=== PATIENT | female | born 1935 | race Caucasian/White ===

== ENCOUNTER 2019-03-16 10:42 | Emergency (ER) | payer MEDICARE, SELFPAY ==
[2019-03-16 11:13] VITALS: BP 188/91; PULSE 68; RESP 18; TEMP 36.4; O2SAT 96; BMI 23.6
--- NOTE | 2019-03-16 11:59 | ED_ITS ---
Entered by Ollie Lantigua, acting as scribe for Bruce Rick DO Mar 16, 2019 10:42 HPI - Abdominal Pain General: Chief Complaint: Abdominal Pain Stated Complaint: Left side pain Time Seen by Provider: 03/16/19 12:03 History of Present Illness: HPI narrative: 84 yo female presents with left sided abdomen pain. Pt states that she has been constipated for awhile. pt states that she is nauseated but denies vomiting. Pt states that she has had b urning with urination. MD elicited complaint: abdominal pain Associated Symptoms: Reports constipation, dysuria and nausea; Denies chills, coffee ground emesis, GI cramping, diarrhea, fever(s), heartburn, hematochezia, hematuria, hematemesis, melena, syncope and vomiting Review of Systems Const: Denies: fever, chills, body aches, fatigue, malaise or night sweats Eyes: Denies: change in vision or blurry vision ENMT: Denies: throat pain, oral sores/lesions, dental pain, nasal discharge or nasal congestion Card: Denies: chest pain, palpitations, irregular heart rhythm, edema, syncope, shortness of breath on exertion, shortness of breath when lying down or leg pain with exertion Resp: Denies: shortness of breath, productive cough, non-productive cough or wheezing GI: Reports: abdominal pain, nausea and constipation; Denies: vomiting, vomiting blood, coffee grounds in vomit, difficulty swallowing, heartburn/indigestion, diarrhea, cramping, blood in stool or black tarry stool : Reports: painful urination and urinary frequency; Denies: flank pain, urinary urgency, urinary incontinence or blood in urine Musc: Denies: neck pain, back pain, extremity pain, extremity swelling, joint pain or joint swelling Skin/Breast: Denies: rash, itching or redness Neuro: Denies: headache, numbness in extremities, weakness in extremities, changes in sensation, lack of coordination, difficulty walking, frequent falls, dizziness, vertigo or confusion Psych: Denies: anxiety, depression, loss of interest, visual hallucinations, auditory hallucinations, suicidal ideation or homicidal ideation Endo: Denies: excessive urination, excessive thirst, tired all the time or cold intolerance Marcel/Lymph: Denies: easy bruising, easy bleeding, petechiae, enlarged lymph nodes or tender lymph nodes PFSH ED PFSH: Statuses (acute, chronic, etc) shown below reflect problem list status as previously entered and may not be historically accurate Medical History CVA (cerebral vascular accident) (Acute) Surgical History H/O mastectomy (Acute) History of cholecystectomy (Acute) History of hysterectomy (Acute) Social History Smoking and tobacco status: never smoked Physical Exam Const: COMMON NORMALS: average body habitus, oriented x3 and alert GENERAL APPEARANCE: cooperative, comfortable, well kempt and well developed NUTRITIONAL APPEARANCE: not obese ORIENTATION/CONSCIOUSNESS: Yes awake, Yes oriented to person and Yes oriented to place HENMT: COMMON NORMALS: normocephalic, head/scalp atraumatic, EAC's normal, TM's normal bilaterally, external nose normal, moist oral mucous membranes and oropharynx normal HEAD & SCALP: normocephalic and atraumatic NOSE: external nose normal EXTERNAL AUDITORY CANAL: EAC's normal TYMPANIC MEMBRANE: TM's normal bilaterally MOUTH: oral and palatal mucosa normal, lip normal and tongue normal THROAT: posterior oropharynx normal and tonsils normal Eye: COMMON NORMALS: PERRL, EOMs intact bilaterally, conjunctivae normal and no scleral icterus CONJUNCTIVA: Yes conjunctivae normal PUPIL: Yes PERRL Neck/C-Spine: COMMON NORMALS: full ROM, no lymphadenopathy, supple, no meningeal signs and thyroid normal THYROID: thyroid normal and asymmetrical Lymph: LYMPHATIC: no lymphadenopathy noted Resp: COMMON NORMALS: normal respiratory effort, no retractions, no use of accessory muscles and clear to auscultation bilaterally AUSCULTATION: clear to auscultation bilaterally Cardio: COMMON NORMALS: regular rate and regular rhythm RATE: regular rate RHYTHM: regular rhythm HEART SOUNDS: no murmurs GI: COMMON NORMALS: normal to inspection, nondistended, normoactive bowel sounds and soft to palpation PALPATION: Yes soft and Yes tender Details: LLQ : COMMON NORMALS: Yes no CVA tenderness BLADDER/KIDNEY EXAM: Yes no CVA tenderness Back/Pelvis: COMMON NORMALS: no CVA tenderness LUMBAR SPINE/LOWER BACK: Yes normal to inspection Extremity: COMMON NORMALS: no clubbing, cyanosis or edema, no calf tenderness and no pedal edema Neuro: COMMON NORMALS: oriented x3 SENSORIUM/ORIENTATION: Yes alert, Yes oriented to person and Yes oriented to place MENINGEAL SIGNS: Yes no meningeal signs Psych: APPEARANCE: Yes well kempt Skin: COMMON NORMALS: no rashes or lesions noted and skin turgor normal GENERAL SKIN EXAM: no rashes or lesions noted and turgor normal Course ED course: Patient is feeling better about discharge her home have her use mag citrate for constipation Vital Signs: Vital signs: Vital Signs Temperature 97.6 F 03/16/19 11:13 Pulse Rate 65 03/16/19 15:36 Respiratory Rate 16 03/16/19 15:36 Blood Pressure 134/63 03/16/19 15:36 Pulse Oximetry 99 03/16/19 15:36 MDM - Abdominal Pain Lab Data: Labs: Lab Results 03/16/19 03/16/19 03/16/19 Range/Units 12:30 12:30 14:10 WBC 6.4 (4.0-10.0) 10^3/ uL RBC 4.53 (4.1-5.3) 10^6/u L Hgb 14.5 (11.5-15.3) g/dL Hct 43.3 (37.0-47.0) % MCV 95.6 (81-99) fL MCH 32.0 (28.0-34.0) pg MCHC 33.5 (30.0-36.0) g/dL RDW 12.6 (12.1-15.1) % Plt Count 254 (130-400) 10^3/c mm MPV 9.8 (7.4-10.4) fL Neut % (Auto) 64.3 % Lymph % (Auto) 23.8 % [place] % (Auto) 7.9 % Eos % (Auto) 3.1 % Baso % (Auto) 0.6 % Neut # (Auto) 4.1 (1.8-7.7) 10^3/u L Lymph # (Auto) 1.5 (0.8-4.8) 10^3/u L [place] # (Auto) 0.5 (0.2-0.9) 10^3/u L Eos # (Auto) 0.2 (0.0-0.8) 10^3/u L Baso # (Auto) 0.0 (0.0-0.1) 10^3/u L Nucleated RBC % (a uto) 0 % Nucleated RBCs # 0.0 /100WBC Sodium 136 (136-145) mmol/L Potassium 4.5 (3.5-5.1) mmol/L Chloride 100 (98-107) mmol/L Carbon Dioxide 26 (22-29) mmol/L Anion Gap 14.5 (5-19) BUN 15 (8-23) mg/dL Creatinine 1.0 H (0.5-0.9) mg/dL Glucose 113 (65-115) mg/dL Calcium 10.0 (8.5-10.5) mg/dL Total Bilirubin 0.6 (0.15-1.2) mg/dL AST 22 (0-32) U/L ALT 10 (0-33) U/L Alkaline Phosphata se 52 (35-105) IU/L Total Protein 7.4 (6.6-8.7) g/dL Albumin 4.2 (3.5-5.2) g/dL Globulin 3.2 (1.3-4.6) g/dL Lipase 18 (13-60) U/L Urine Color Yellow (Yellow) Urine Appearance Clear (CLEAR) Urine pH 5 (5-7) Ur Specific Gravit y 1.015 (1.005-1.030) Urine Protein Neg (Negative) Urine Glucose (UA) Norm (Normal) Urine Ketones Negative (Negative) Urine Occult Blood Neg (Negative) Urine Nitrate Negative (Negative) Urine Bilirubin Neg (NEGATIVE) Urine Urobilinogen Norm (Negative) mg/dL Ur Leukocyte Jessica ase Negative (Negative) Discharge Plan Discharge Patient Disposition: Home, Self-Care Clinical Impression: Constipation, Osteoarthritis of right hip Condition: Stable Prescriptions: No Action citalopram 40 mg tablet 20 mg PO ONCE MDD 1 Qty: 30 RF: 5 Referrals: Galileo Yan MD [Primary Care Provider] - Discharge Diet: Usual diet Discharge Activity: Resume usual activity Discharge Date/Time: 03/16/19 15:37 Coding Level of Care Code ED Pharmacy General Manager for Chg Fwd Exam Problem Focused The documentation recorded by the Grzegorz liu,Kialy, accurately reflects the service I personally performed and the decisions made by , Bruce Rick, Mar 16, 2019 10:42
--- NOTE | 2019-03-16 12:10 | XR_ITS ---
WS: [id number] Left hip, AP and frog leg views, 03/16/2019 Clinical Data: pain Comparison: None. Findings: No fractures or dislocations are seen. The hip joint is intact. The soft tissues are not remarkable. The adjacent pelvis is normal. XR/XR hip LT 2-3V wo/w pel* [id number] Impression: Negative left hip.
--- NOTE | 2019-03-16 12:24 | PC.NURSE ---
Pt presents to ER with LLQ abdominal pain that radiates into the left leg. Pt states that she has chronic constipation and feels the pain is related to this. Last BM was very small and hard yesterday; she cannot remember her last normal BM or her last BM before yesterday. Bowels sounds are normoactive in all four quadrants. Patient states she does have a hernia in the LLQ of the abdomen.
[2019-03-16 12:44] LABS: Basophils % 0.6 %; Eosinophils # 0.2 10^3/uL (0.0-0.8); Eosinophils % 3.1 %; Hematocrit 43.3 % (37.0-47.0); Hemoglobin 14.5 g/dL (11.5-15.3); Lymphocytes # 1.5 10^3/uL (0.8-4.8); Lymphocytes % 23.8 %; Mean Corpuscular HGB Conc 33.5 g/dL (30.0-36.0); Mean Corpuscular Volume 95.6 fL (81-99); Mean Platelet Volume 9.8 fL (7.4-10.4); Monocytes # 0.5 10^3/uL (0.2-0.9); Monocytes % 7.9 %; Neutrophils # 4.1 10^3/uL (1.8-7.7); Neutrophils % 64.3 %; Nucleated Red Blood Cells % 0 %; Platelet Count 254 10^3/cmm (130-400); Red Blood Count 4.53 10^6/uL (4.1-5.3); Red Cell Distribution Width 12.6 % (12.1-15.1); White Blood Count 6.4 10^3/uL (4.0-10.0)
[2019-03-16 13:02] LABS: Alanine Aminotransferase 10 U/L (0-33); Albumin Level 4.2 g/dL (3.5-5.2); Alkaline Phosphatase 52 IU/L (35-105); Anion Gap 14.5 (5-19); Aspartate Amino Transferase 22 U/L (0-32); Blood Urea Nitrogen 15 mg/dL (8-23); Carbon Dioxide 26 mmol/L (22-29); Chloride 100 mmol/L (98-107); Globulin 3.2 g/dL (1.3-4.6); Glucose 113 mg/dL (65-115); Lipase 18 U/L (13-60); Potassium 4.5 mmol/L (3.5-5.1); Sodium 136 mmol/L (136-145); Total Bilirubin 0.6 mg/dL (0.15-1.2); Total Protein 7.4 g/dL (6.6-8.7)
[2019-03-16 13:19] VITALS: BP 148/82; PULSE 63; RESP 18; O2SAT 96
[2019-03-16 15:01] LABS: Add Urine Microscopic? NO
[2019-03-16 15:07] LABS: Bilirubin Urine Neg (NEGATIVE); Blood Urine Neg (Negative); Glucose Urine UA Norm (Normal); Ketones Urine Negative (Negative); Leukocyte Esterase Urine Negative (Negative); Nitrate Urine Negative (Negative); Protein Urine Neg (Negative); Specific Gravity, Urine 1.015 (1.005-1.030); Urine Appearance Clear (CLEAR); Urine Color Yellow (Yellow); Urobilinogen Urine Norm (Negative); pH Urine 5 (5-7)
[2019-03-16 15:36] VITALS: BP 134/63; PULSE 65; RESP 16; O2SAT 99
== END 2019-03-16 15:37 | disposition home or self-care (01) ==
PROVIDERS: Emergency Provider Family Medicine; Family Provider Internal Medicine; PCP Internal Medicine
DX: K59.00 Constipation, unspecified (principal); M16.11 Unilateral primary osteoarthritis, right hip; Z86.73 Personal history of transient ischemic attack (TIA), and cerebral infarction without residual deficits
CPT/HCPCS: 36415; 73502; 80053; 81003; 83690; 85025; 99282; 99283; A9270

== ENCOUNTER 2019-03-22 10:20 | Outpatient (CLI) | payer MEDICARE, SELFPAY ==
--- NOTE | 2019-03-22 10:35 | XRR_ITS ---
PROCEDURE INFORMATION: Exam: XR Lumbosacral Spine, 2 or 3 Views Exam date and time: 03/22/2019 10:53 AM Age: 84 years old Clinical indication: Other: Llq abd pain; Prior surgery; Surgery type: Hystero; Additional info: Llq abdominal pain TECHNIQUE: Imaging protocol: XR of the lumbosacral spine, 2 or 3 views. COMPARISON: CR Lumbar Spine 2-3 views* [id number] 03/02/2013 9:49 AM FINDINGS: Vertebrae: Severe diffuse degenerative disc disease reflected as severe decrease in disc space height and anterior endplate osteophytosis. No spondylolisthesis No pars defect. Osteopenia Mild compression fracture anterior column L1. Severe compression fractures T12 and T11. Exaggerated kyphosis at this interval. Soft tissues: Normal. XR/XR lumbar spine 2-3V* [id number] IMPRESSION: 1. Severe diffuse degenerative disc disease. 2. Mild compression fracture anterior column L1. Severe compression fractures T12 and T11. Exaggerated kyphosis at this interval.
== END 2019-03-22 10:21 | disposition home or self-care (01) ==
LOC: RAD 10:30
PROVIDERS: Family Provider Internal Medicine; PCP Family Medicine; Visit Provider Family Medicine
DX: R10.32 Left lower quadrant pain (principal); M51.36 Other intervertebral disc degeneration, lumbar region; M48.56XA Collapsed vertebra, not elsewhere classified, lumbar region, initial encounter for fracture; M48.54XA Collapsed vertebra, not elsewhere classified, thoracic region, initial encounter for fracture; X58.XXXA Exposure to other specified factors, initial encounter
CPT/HCPCS: 72100

== ENCOUNTER 2019-05-10 08:30 | Outpatient (CLI) | payer MEDICARE, SELFPAY ==
[2019-05-10 10:55] LABS: Basophils % 0.6 %; Eosinophils # 0.2 10^3/uL (0.0-0.8); Eosinophils % 2.4 %; Lymphocytes # 1.4 10^3/uL (0.8-4.8); Mean Corpuscular HGB Conc 32.6 g/dL (30.0-36.0); Mean Corpuscular Hemoglobin 31.5 pg (28.0-34.0); Mean Corpuscular Volume 96.6 fL (81-99); Mean Platelet Volume 10.6 fL (7.4-10.4); Monocytes # 0.5 10^3/uL (0.2-0.9); Monocytes % 6.8 %; Neutrophils # 4.6 10^3/uL (1.8-7.7); Neutrophils % 68.9 %; Nucleated Red Blood Cells % 0 %; Platelet Count 265 10^3/cmm (130-400); Red Blood Count 4.45 10^6/uL (4.1-5.3); White Blood Count 6.6 10^3/uL (4.0-10.0)
[2019-05-10 11:07] LABS: Alanine Aminotransferase 10 U/L (0-33); Albumin Level 4.2 g/dL (3.5-5.2); Alkaline Phosphatase 48 IU/L (35-105); Anion Gap 14.8 (5-19); Aspartate Amino Transferase 22 U/L (0-32); Blood Urea Nitrogen 14 mg/dL (8-23); Calcium 9.9 mg/dL (8.5-10.5); Carbon Dioxide 25 mmol/L (22-29); Chloride 102 mmol/L (98-107); Globulin 3.1 g/dL (1.3-4.6); Glucose 120 mg/dL (65-115); Lactate Dehydrogenase 223 U/L (135-214); Osmolality Calculated 283 mOsm/kg (285-295); Potassium 3.8 mmol/L (3.5-5.1); Sodium 138 mmol/L (136-145); Total Bilirubin 0.5 mg/dL (0.15-1.2); Total Protein 7.3 g/dL (6.6-8.7)
== END 2019-05-10 08:31 | disposition home or self-care (01) ==
LOC: ONCMED 15:06
PROVIDERS: Family Provider Internal Medicine; PCP Family Medicine; Visit Provider Internal Medicine Medical Oncology
DX: C82.10 Follicular lymphoma grade II, unspecified site (principal)
CPT/HCPCS: 36415; 80053; 83615; 85025

== ENCOUNTER 2019-05-16 13:34 | Outpatient (CLI) | payer MEDICARE, SELFPAY ==
[2019-05-16] MEDS: denosumab 60 mg SDV SUBCUT (14:45)
--- NOTE | 2019-05-16 18:38 | ONC FU_ITS ---
Dr. Llanos Patient Follow-Up Note Patient: Stacie Hernandez Unit #: [id number]: [id number] Dicatated By: Dago Llanos M.D.Date of Visit:May 16, 2019 Onc Med Follow-up/Prog Note Chief Complaint: Lymphoma. 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 On 02/08/2013 she was admitted with acute on chronic lower back pain and intractable nausea and vomiting. Her CT and follow up MRI revealed a right paraspinal mass measuring 6.2 cm with associated cord compression at T12 and with involvement of the spinal canal at L1. There was destruction of T12 and L1 vertebral bodies. The extraspinal component of the neoplasm displaced the abdominal aorta. CT-guided core needle biopsy on 02/09/2013 showed grade 1-2/3 follicular lymphoma with follicular and diffuse pattern of growth. Immunohistochemistry was positive for CD10, CD20, BCL 2, and negative for cyclin D1. Ki-67 was less than 5%. She was first seen on by Dr. Terrazas on 02/12/2013. LDH was 244, ESR 29. FLIPI score with low risk, with adverse factor being her age only. Her staging PET/CT on 02/16/2013 showed 6 cm retrocrural mass tracking into spinal canal at T12 with SUV of 5.5. There was a pathological fracture of L1 and partial compression fracture of T12. No other sites of malignancy were identified. A bone marrow biopsy on 02/22/2013 showed no evidence of metastatic disease. She completed definitive radiation therapy to 4000 cGy on 03/08/2013. Lumbar spine MRI on 03/28/2013 showed decrease in epidural soft tissue neoplasm. There was a new right and left lateral T11 bone involvement, concerning for progression of disease. LDH was 183. The followup CT of abdomen and pelvis on 04/20/2013 showed stable paraspinal mass, but increase in the compression fracture at T12. PET/CT on 06/16/2013 showed 4.7 cm paraspinous mass with negligible FDG uptake. There was a complete compression fracture of T12, partial compression fracture of L1. Some increased FDG uptake in T11 was thought to represent postradiation reaction. There were no new sites of lymphoma identified. A CT of the abdomen and pelvis on 12/07/2013 was without evidence of progression. The paraspinal mass was smaller. DEXA scan revealed significant osteoporosis. She began on therapy with Prolia. Bone scan as well as CT scans of the chest, abdomen, and pelvis on 10/01/2014 had no evidence of disease recurrence. There were T and L-spine compression fractures. She continued observation/expectant management. Her medical history is otherwise significant for right hemispheric stroke in 2011. She has hyperlipidemia, hypothyroidism, B12 deficiency, and anxiety/depression. She is a nonsmoker. INTERIM HISTORY: I had seen her for a follow-up visit in March 2016. At that time she was having back pain and she had somewhat limited activity, but there was no evidence clinically of disease progression. She continued observation/expectant management. Surveillance CT scans on 10/19/2016 showed no adenopathy and no evidence of disease progression in the chest, abdomen, or pelvis. In May 2017 she restarted Prolia for the osteoporosis. Her repeat DEXA scan on 05/25/2018 showed T score -3.2 in the lumbar spine, -2.3 in the left proximal femur, and -3.0 in the right proximal femur. She is seen for a scheduled visit. She has not been feeling as good generally. She indicates that in early March she had fairly abrupt onset of pain across her shoulders, and the next day she woke up with pain in her left leg. The pain has been severe enough to limit her activity, and she is now having to use a walker to ambulate. She has assumed this was due to another stroke, because she also has been mad and irritable with her family. She has been crying a lot. She says her energy is terrible. She is mostly sedentary. Her ECOG score is 3. Her appetite has been down a little, but her weight is stable. She as not had fever. She had some sweating last night. She complains that her eyes hurt and burn. She sometimes has a hard time breathing. She does not have cough and she does not complain of chest pain. She occasionally has nausea. Bowel function has been better. She has no complaints. She has no other joint or bone pain. She has been having more headaches, mainly on the right side. Her hands sometimes go to sleep. She has no other focal neurologic symptoms. Medications: Aspirin 1 (81 mg) Tablet Oral daily, Atenolol-Chlorthalidone 1 (100-25 mg) Tablet Oral daily, busPIRone HCl 1 Tablet (of 5 mg) Oral t.i.d. PRN, CeleXA 1 (20 mg) Tablet Oral daily, Hydrocodone-Acetaminophen (5-325 mg) Tablet Oral Take as Directed, Lisinopril 1 (40 mg) Tablet Oral daily, Multivital 1 Tablet Oral daily, Simvastatin 1 (20 mg) Tablet Oral daily, Synthroid 1 (150 mcg) Tablet Oral daily, Xanax 1 Tablet (of 0.25 mg) Oral PRN Allergies: Niacin Review of Systems: Constitutional - Her energy level is low to non-exsistant. She is mainly sedentary at home. Her appetite is poor but weight is stable. No fever, chills, hot flashes. She had an episode of sweating at night a few nights ago. ECOG score is 3, Eyes - She is having a frequent burning sensation in her eyes, ENMT - She has sinus congestion/drainage. No mouth sores. No sore throat or difficulty swallowing, Hematologic/Lymphatic - No abnormal bruising or bleeding, Respiratory - She sometimes has a hard time breathing. No cough. No pleuritic pain or hemoptysis, Cardiovascular - No angina pain. No palpitations, Gastrointestinal - She occasionally has nausea. No heartburn or acid reflux. No diarrhea or constipation. No blood in the stool or black stools, Genitourinary (F) - No dysuria or hematuria. No urinary frequency. No urgency or incontinence, Musculoskeletal - She is having significant pain down her left leg, she is now having to use a walker to ambulate, Integumentary - No skin complications, Neurologic - She is having right sided headaches. No dizziness. Her hands occasionally go to sleep. She has no other focal neurologic symptoms, Psychiatric - She is having significant anxiety and depression. She states that she has been crying almost daily. She has noticed changes in her mood, as she has been more irritable with her family. She has insomnia. Vital Signs: Performed on May 16, 2019 13:47 Height - 60.00 in Weight - 108.6 lbs (LOW) BSA - 1.44 sq.m BMI - 21.21 Temperature - 98.1 F (LOW) Pulse - 66 /min Respiration - 18 /min BP - 133/71 mm(hg) O2 Sat - 97 % Pain - 0 Physical Examination: Constitutional - She does not appear acutely ill, Eyes - Sclerae nonicteric. Conjunctivae clear, ENMT - There are no lesions noted in the oral cavity, Hematologic/Lymphatic - No cervical, clavicular, or axillary adenopathy, Respiratory - Lungs are clear with good air movement bilaterally, Cardiovascular - Heart rhythm is regular. There is no gallop or rub noted, Abdomen - Soft. Liver and spleen are not enlarged. There is no abdominal mass or ascites noted and there is no inguinal adenopathy, Extremities - No edema. Dorsalis pedis pulses are palpable bilaterally. There is mild tenderness in the area of the left greater trochanter, Neurologic - There are no focal neurologic deficits. Lab/Imaging: Test performed on May 10, 2019 08:30 LDH (Total) 223 U/L Sodium 138 mmol/L Potassium 3.8 mmol/L Chloride 102 mmol/L CO2 25 mmol/L Anion Gap 14.8 BUN 14 mg/dL Creatinine 1.1 mg/dL Cr Clearance (Est) 31.2300 mL/min Glucose 120 mg/dL Calcium 9.9 mg/dL Protein, Total 7.3 g/dL Albumin 4.2 g/dL Globulin 3.1 g/dL Bilirubin, Total 0.5 mg/dL ALT (SGPT) 10 U/L AST (SGOT) 22 U/L Alkaline Phosphatase 48 IU/L WBC 6.6 10 3/uL RBC 4.45 10 6/uL HGB 14.0 g/dL HCT 43.0 % MCV 96.6 fL MCH 31.5 pg MCHC 32.6 g/dL RDW 13.0 % Platelet Count 265 10 3/cmm MPV 10.6 fL Neutrophils 4.6 10 3/uL Lymphocytes 1.4 10 3/uL Monocytes 0.5 10 3/uL Eosinophils 0.2 10 3/uL Basophils 0.0 10 3/uL Neutrophil % 68.9 % Lymphocyte % 21.0 % Monocyte % 6.8 % Eosinophil % 2.4 % Basophils % 0.6 % Impression: 1. 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 She had low risk FLIPI score. 2. She also had associated pathologic fractures of T12 and L1. 3. She underwent definitive radiation therapy to the involved area, completed on 03/08/2013 to a total dose of 4000 cGy. 4. MRI of the lumbar spine on 03/28/2013 showed possible progression of disease in T11, but PET/CT on 06/16/2013 was suggestive of radiation related reaction. She had severe pain with further compression of T12, and she was found to have significant osteoporosis. She had subsequently started on treatment with Prolia. For some reason it was stopped following her injection in March 2015. 5. She has remain on observation for the lymphoma following completion of the radiation in February 2013. Her other medical illnesses include: 6. Hypertension. 7. Hyperlipidemia. 8. Hypothyroidism. 9. Cerebrovascular disease with history of right hemispheric stroke in 2011. 10. Anxiety/depression. Thus far during followup there has been no obvious recurrence/progression of the lymphoma. She had evidence of significant osteoporosis, for which she has been on treatment with Prolia. She has been showing decline in performance status. For the past couple of months she has had persistent pain in the lateral aspect of her left leg. Plan: She will continue on observation/expectant management for the lymphoma. She will be given Prolia 60 mg by subcutaneous injection for the osteoporosis. She will be scheduled for a follow-up visit in 6 months. In the meantime, she will be given a prescription for meloxicam 7.5 mg daily for the left leg pain. Signed By: Dago Llanos M.D. <<Signature on File>>
== END 2019-05-16 13:35 | disposition home or self-care (01) ==
PROVIDERS: Family Provider Internal Medicine; PCP Family Medicine; Visit Provider Internal Medicine Medical Oncology
DX: M81.0 Age-related osteoporosis without current pathological fracture (principal); M79.605 Pain in left leg; Z85.72 Personal history of non-Hodgkin lymphomas; I10 Essential (primary) hypertension; I67.9 Cerebrovascular disease, unspecified; E78.5 Hyperlipidemia, unspecified; E03.9 Hypothyroidism, unspecified; F41.8 Other specified anxiety disorders; Z86.73 Personal history of transient ischemic attack (TIA), and cerebral infarction without residual deficits; Z87.311 Personal history of (healed) other pathological fracture
CPT/HCPCS: 96372; 99214; J0897

== ENCOUNTER 2019-05-28 01:42 | Outpatient (CLI) | payer MEDICARE, SELFPAY ==
--- NOTE | 2019-05-28 14:15 | XR_ITS ---
WS: [id number] PROCEDURE: XR chest 2V* [id number] CLINICAL INFORMATION: SHORTNESS OF BREATH COMPARISON: March 10, 2018 FINDINGS: Heart: Normal cardiac silhouette. Aortic calcification Lungs: Moderate chronic emphysematous changes. Elevation right hemidiaphragm is unchanged. No acute-a ppearing pulmonary infiltrates. Bones: Marked thoracic kyphosis with chronic appearing compression in the mid thoracic spine with jarocho tebral plana. Thoracic scoliosis. XR/XR chest 2V* [id number] IMPRESSION: 1. Moderate chronic emphysematous changes with elevation right hemidiaphragm. 2. No acute-appearing pulmonary infiltrates. 3. Marked thoracic kyphosis with chronic appearing anterior wedging compressio n of the mid thoracic spine.
[2019-05-28 14:20] LABS: Basophils % 0.4 %; Eosinophils # 0.2 10^3/uL (0.0-0.8); Eosinophils % 3.7 %; Hematocrit 41.3 % (37.0-47.0); Hemoglobin 13.4 g/dL (11.5-15.3); Lymphocytes # 1.1 10^3/uL (0.8-4.8); Lymphocytes % 22.2 %; Mean Corpuscular HGB Conc 32.4 g/dL (30.0-36.0); Mean Corpuscular Hemoglobin 31.5 pg (28.0-34.0); Mean Corpuscular Volume 97.2 fL (81-99); Mean Platelet Volume 10.3 fL (7.4-10.4); Monocytes # 0.4 10^3/uL (0.2-0.9); Monocytes % 8.2 %; Neutrophils # 3.2 10^3/uL (1.8-7.7); Neutrophils % 65.3 %; Nucleated Red Blood Cells % 0 %; Platelet Count 233 10^3/cmm (130-400); Red Blood Count 4.25 10^6/uL (4.1-5.3); Red Cell Distribution Width 13.1 % (12.1-15.1); White Blood Count 4.9 10^3/uL (4.0-10.0)
[2019-05-28 14:57] LABS: Alanine Aminotransferase 12 U/L (0-33); Albumin Level 4.2 g/dL (3.5-5.2); Alkaline Phosphatase 55 IU/L (35-105); Anion Gap 15.3 (5-19); Aspartate Amino Transferase 24 U/L (0-32); Blood Urea Nitrogen 11 mg/dL (8-23); Calcium 9.5 mg/dL (8.5-10.5); Carbon Dioxide 26 mmol/L (22-29); Chloride 103 mmol/L (98-107); Globulin 3.2 g/dL (1.3-4.6); Glucose 108 mg/dL (65-115); NT Pro B Type Natriuretic Pept 157 pg/mL (0-450); Osmolality Calculated 287 mOsm/kg (285-295); Potassium 4.3 mmol/L (3.5-5.1); Sodium 140 mmol/L (136-145); Total Bilirubin 0.3 mg/dL (0.15-1.2); Total Protein 7.4 g/dL (6.6-8.7)
== END 2019-05-28 01:43 | disposition home or self-care (01) ==
LOC: RAD 13:44
PROVIDERS: Family Provider Internal Medicine; PCP Family Medicine; Visit Provider Registered Nurse
DX: R06.02 Shortness of breath (principal); J43.9 Emphysema, unspecified; M40.204 Unspecified kyphosis, thoracic region
CPT/HCPCS: 71046; 80053; 83880; 85025

== ENCOUNTER 2019-07-12 11:35 | Outpatient (CLI) | payer MEDICARE, SELFPAY ==
--- NOTE | 2019-07-12 11:43 | CT_ITS ---
WS: [id number] CT CHEST WITH INTRAVENOUS CONTRAST HISTORY: SHORTNESS OF BREATH/PULMONARY EMPHYSEMA TECHNIQUE: Contiguous 5 mm axial imaging performed on the thorax. Coronal and sagittal reformats are submitted. All CT scans at [facility] use at least one of these dose optimization techniq ues: automated exposure control; mA and/or kV adjustment per patient size (includes targeted exams wh ere dose is matched to clinical indication); or iterative reconstruction. CONTRAST: Visipaque 320; 95 mL IV. DLP: 267.6 mGy.cm COMPARISON: 10/19/2016 Lungs and central airway: Mild emphysema. Mild pulmonary hyperexpansion. 2 mm nodule superior segment RIGHT lower lobe is stable. No suspicious mass. There is mild elevation of the RIGHT hemidiaphragm w ith partial atelectasis of the RIGHT middle and RIGHT lower lobes which is similar to the prior study . Interstitial thickening at the RIGHT lung base is stable. Pleura: Normal. No pleural effusion. Heart and pericardium: Normal size heart. No pericardial effusion. Mediastinum and juan ramon: No adenopathy. Vessels: Mild atherosclerosis aorta. No aneurysm. Normal size pulmonary artery. Heavy calcifications noted within the [place] coronary arteries. Chest wall and lower neck: No soft tissue masses. Upper abdomen: Mild elevation of the RIGHT hemidiaphragm with the liver high riding into the thorax. Prior cholecystectomy. Suprarenal atherosclerosis of aorta. There is no adrenal mass. 9 mm cyst upper pole RIGHT kidney. Osseous structures: Severe vertebral planar fractures at T11, T12 and L1. No change in the fracture s sawyer 10/19/2016. Mild anterior wedging of T7 is also stable. CT/CT chest w con* [id number] IMPRESSION: 1. Mild emphysema with stable elevation of the RIGHT hemidiaphragm. 2. Moderate atherosclerosis aorta and coronary arteries. 3. No pneumonia. 4. Long-term stability of micronodule RIGHT lower lobe. 5. Stable compression fractures at T7, T11, T12 and L1.
[2019-07-12] MEDS: iodixanol 320 mg/mL 100mL Btl IV (12:06)
== END 2019-07-12 11:36 | disposition home or self-care (01) ==
LOC: RADWPI 11:40 → RAD 11:40
PROVIDERS: PCP Family Medicine; Visit Provider Registered Nurse
DX: R06.02 Shortness of breath (principal); J43.8 Other emphysema; I70.0 Atherosclerosis of aorta; I25.10 Atherosclerotic heart disease of native coronary artery without angina pectoris; R91.1 Solitary pulmonary nodule; M48.54XA Collapsed vertebra, not elsewhere classified, thoracic region, initial encounter for fracture
CPT/HCPCS: 71260

== ENCOUNTER 2019-08-03 13:33 | Outpatient (CLI) | payer MEDICARE, SELFPAY ==
--- NOTE | 2019-08-03 13:43 | USCV_ITS ---
Stacie Hernandez Age: 84 Gender: F : 1935 Exam Date: 08/03/2019 14:00 Ordering Phys: Eleonora Mercado Technologist: Yahaira Latif [place] [facility] [place]: [place]CP BP: / HR: 62 Rhythm: Sinus Technical Quality: Suboptimal MEASUREMENTS (Male / Female) Normal Values 2D ECHO LV Diastolic Diameter PLAX 3.2 cm 4.2 - 5.9 / 3.9 - 5.3 cm LV Systolic Diameter PLAX 2.3 cm IVS Diastolic Thickness 0.9 cm 0.6 - 1.0 / 0.6 - 0.9 cm IVS Systolic Thickness 1.4 cm LVPW Diastolic Thickness 0.5 cm 0.6 - 1.0 / 0.6 - 0.9 cm LVPW Systolic Thickness 1.5 cm LVOT Diameter 2.0 cm LV Ejection Fraction 2D Teich 57.9 % LV Ejection Fraction MOD 2C 74.3 % LV Ejection Fraction 2C AL 74.6 % LA Diameter 3.6 cm LA Width 2.4 cm LA Height 5.0 cm RA Width 2.9 cm RA Height 2.5 cm M-MODE LV Diastolic Diameter MM 4.2 cm 4.2 - 5.9 / 3.9 - 5.3 cm LV Systolic Diameter MM 2.7 cm LV Ejection Fraction MM Teich 65.6 % IVS Diastolic Thickness MM 0.6 cm 0.6 - 1.0 / 0.6 - 0.9 cm IVS Systolic Thickness MM 1.0 cm LVPW Diastolic Thickness MM 0.7 cm 0.6 - 1.0 / 0.6 - 0.9 cm LVPW Systolic Thickness MM 1.2 cm Aortic Annulus Diameter 3.3 cm LA Ao Ratio MM 1.1 DOPPLER AV Peak Velocity 113.0 cm/s LVOT Peak Velocity 105.0 cm/s AV Area Cont Eq vti 2.9 cm squared AV Area Cont Eq pk 2.9 cm squared MV Peak Velocity 104.0 cm/s MV Area PHT 3.9 cm squared Mitral E to A Ratio 0.6 MV E' Velocity 5.0 cm/s Mitral E to MV E' Ratio 13.2 Mitral E to LV E' Lateral Ratio 12.7 Mitral E to LV E' Septal Ratio 14.0 TR Peak Velocity 236.0 cm/s TR Peak Gradient 22.4 mmHg Right Atrial Pressure 3.0 mmHg Pulmonary Artery Systolic Pressu 25.3 mmHg PV Peak Velocity 63.0 cm/s RV Acceleration Time 0.1 s FINDINGS Left Ventricle Normal left ventricular cavity size. Mild left ventricular hypertrophy. Normal left ventricular systolic function. No regional wall motion abnormalities. Grade I/IV diastolic dysfunction (abnormal relaxation filling pattern), normal to mildly elevated filling pressures. Left ventricular ejection fraction is estimated at 65 %. Right Ventricle Normal right ventricular size and systolic function. Normal right ventricular systolic pressure. Right Atrium The right atrium is normal in size. Left Atrium The left atrium is normal in size. Mitral Valve Structurally normal mitral valve. Trace mitral valve regurgitation. Aortic Valve Structurally normal trileaflet aortic valve. No aortic valve stenosis. Mild aortic valve regurgitation. Tricuspid Valve Structurally normal tricuspid valve. Trace tricuspid valve regurgitation. Pulmonic Valve Pulmonic valve not well visualized. Pericardium Normal pericardium without effusion. Aorta Normal ascending aorta dimension. CONCLUSIONS Normal left ventricular cavity size. Mild left ventricular hypertrophy. Normal left ventricular systolic function. No regional wall motion abnormalities. Grade I/IV diastolic dysfunction (abnormal relaxation filling pattern), normal to mildly elevated filling pressures. Left ventricular ejection fraction is estimated at 65 %. Structurally normal mitral valve. Trace mitral valve regurgitation. Structurally normal trileaflet aortic valve. No aortic valve stenosis. Mild aortic valve regurgitation. There are no prior echocardiogram studies to compare. Dr. Beny Dominguez MD (Electronically Signed) Final Date: 03 August 2019 15:13 S
== END 2019-08-03 13:34 | disposition home or self-care (01) ==
LOC: US 13:41
PROVIDERS: PCP Family Medicine; Visit Provider Registered Nurse
DX: R06.02 Shortness of breath (principal); R07.9 Chest pain, unspecified; I35.1 Nonrheumatic aortic (valve) insufficiency
CPT/HCPCS: 93306

== ENCOUNTER 2019-08-21 10:30 | Outpatient (CLI) | payer MEDICARE, SELFPAY ==
--- NOTE | 2019-08-21 10:35 | CT_ITS ---
WS: [id number] CT NECK TECHNIQUE: Contrast-enhanced CT of the neck with coronal and sagittal reformatted images. CLINICAL INFORMATION: DYSPHAGIA COMPARISON: CT neck 1 19,010 and PET/CT 5 10,014 DLP: 468.[address] scans at [facility] use at least one of these dose optimization techniques: automat ed exposure control; mA and/or kV adjustment per patient size (includes targeted exams where dose is matched to clinical indication); or iterative reconstruction. FINDINGS: Parotid glands are normal. Normal submandibular glands. Tongue base appears normal. Normal parapharyn geal fat. No evidence of supraglottic or glottic mass. Normal piriform sinuses. Normal subglottic air way. No cervical lymphadenopathy. Mastoid air cells and paranasal sinuses are well aerated. Lung apices ar e well aerated. Normal visualized cervical spine. CT/CT neck w con* [id number] IMPRESSION: 1. Normal salivary glands. 2. No evidence of supraglottic or glottic mass. 3. Normal visualized posterior nasopharynx. 4. Paranasal sinuses and mastoid air cells well aerated. 5. Subglottic airway appears normal. 6. No cervical lymphadenopathy.
--- NOTE | 2019-08-21 10:35 | FL_ITS ---
WS: [id number] ESOPHAGRAM Fluoroscopy time 2.2 minutes TECHNIQUE: Double contrast examination was performed with thin and thick barium. Upright and STUART imag es were obtained. CLINICAL INFORMATION: DYSPHAGIA COMPARISON: None. FINDINGS: Swallowing: Normal oropharyngeal phase. No evidence of aspiration penetration. Prominent cricopharyng eus. No obstruction. Incidental lateral pharyngeal pouches. Esophagus: Moderate to severe esophageal dysmotility with diffuse esophageal spasm and corkscrew esop hagus involving the mid and distal thoracic esophagus. Delayed emptying with esophageal reflux. No si gnificant hiatal hernia. No evidence of obstructing mass or lesion. Gastroesophageal reflux: Present to the midesophagus Fluoroscopy time: 2.2 minutes. FL/FL barium swallow [id number] IMPRESSION: 1. No evidence of aspiration or penetration. 2. Moderate to advanced esophageal dysmotility with diffuse esophageal spasm a nd corkscrew esophagus involving the mid and distal thoracic esophagus. This re sults in delayed emptying. 3. Moderate esophageal reflux to the midesophagus. No significant hiatal herni a. 4. No obstructing mass or lesion.
[2019-08-21 11:23] LABS: Blood Urea Nitrogen 12 mg/dL (8-23)
[2019-08-21] MEDS: iodixanol 320 mg/mL 100mL Btl IV (11:40)
== END 2019-08-21 10:31 | disposition home or self-care (01) ==
LOC: CT 10:33
PROVIDERS: PCP Family Medicine; Visit Provider Specialist
DX: R13.10 Dysphagia, unspecified (principal)
CPT/HCPCS: 36415; 70491; 74220; 82565; 84520

== ENCOUNTER 2019-10-30 07:30 | Outpatient (CLI) | payer MEDICARE, SELFPAY ==
--- NOTE | 2019-10-30 07:37 | ECG_ITS ---
[facility] Test Date: 2019-10-30 Pat Name: Stacie Hernandez Department: Room: Gender: Female Community Service Officer: : 1935 Requested By: Sirena Chang Order Number: [id number] Lety MD: Sirena Chang M.D. Interpretive Statements NAME OF STUDY: LEXISCAN SESTAMIBI STRESS TEST INDICATION: Shortness of Breath PROCEDURE: At the baseline, the blood pressure was 167/66 mmHg with a heart rate of 68 bpm. The electrocardiogram showed normal sinus rhythm, normal axis with no significant ST-T wave changes. The Lexiscan was infused over a period of 20 seconds. A total of 0.4 milligrams of Lexiscan was infused. The stress phase was continued for a total of 5 minutes. Heart rate at the end of the stress phase was 82 bpm with a blood pressure of 149/82 mmHg. The EKG at the peak infusion revealed no significant ST-T wave changes. Sestamibi was injected 20 seconds after the Lexiscan infusion. Blood pressure at the end of the recovery phase was 137/82 mmHg with a heart rate of 76 beats per minute. CONCLUSION: 1. No significant EKG changes with the LexiScan infusion. 2. No LexiScan induced chest pain or cardiac arrhythmia. 3. Normal blood pressure and heart rate response. 4. Sestamibi/sestamibi perfusion scan pending; see separate report. Electronically Signed On 10-31-2019 17:25:07 CDT by Sirena Chang M.D. [id number]
--- NOTE | 2019-10-30 07:38 | NMCV_ITS ---
NM arias perf SPECT r/s* [id number] Stacie Hernandez Age: 84 Gender: F : 1935 Exam Date: 10/30/2019 07:38 Ordering Phys: Sirena Chang MD ([email or web address]) Technologist: JUVENTINO Sanchez Exam Location: [facility] Indications: DYSPNEA STRESS TEST Please see separate stress test report in [facility] for full findings IMAGE PROTOCOL Rest/Stress 1 Lexiscan Day Radiopharmaceutical Dose (mCi) Administration Site Administered by Rest: Tc-99m 10.7 IV JUVENTINO Franklin Sestamibi Stress:Tc-99m 32.5 IV JUVENTINO Franklin Sestamibi Rest: 30-Oct-2019 60 Discovery 630 Stress: 30-Oct-2019 30 Discovery 630 0.4mg Lexiscan. Images obtained in supine and prone position. SPECT RESULTS Technical Quality: Excellent Raw Data Analysis: Normal Image Corrections: No attenuation or motion correction applied Summed Stress Score: 0 Summed Rest Score: 3 Summed Difference Score: 0 PERFUSION FINDINGS Small size perfusion abnormality of mild severity of mid inferolateral wall on rest images with improved tracer uptake on stress images. This is suggestive of attenuation artifact. FUNCTIONAL RESULTS (calculated via Gated SPECT) Stress Image LV EF (%): 88 Stress EDV (mL):40 TID: 1.38 Stress ESV (mL):5 FUNCTIONAL FINDINGS: The left ventricle is normal in size. Transient Ischemia Dilatation of 1.4. There is hyperdynamic left ventricular global systolic function. The left ventricular ejection fraction is normal with a value of 88%. There is hyperdynamic left ventricular wall thickening. IMPRESSIONS 1. Myocardial perfusion imaging is normal. 2. Overall left ventricular systolic function is hyperdynamic without regional wall motion abnormalities, LVEF=88%. 3. Transient Ischemia Dilatation elevated at 1.4. 4. This may be suggestive of hypertensive response/subendocardial ischemia or multivessel coronary artery disease. Clinical correlation is advised. Sirena Chang MD (Electronically Signed) Final Date: 31 October 2019 17:22 S
[2019-10-30 07:47] VITALS: BMI 23.3
[2019-10-30] MEDS: regadenoson 0.4 Mg/5 ml Syringe IVP (09:30)
[2019-10-30 09:42] VITALS: BP 137/82; PULSE 76
== END 2019-10-30 07:31 | disposition home or self-care (01) ==
LOC: CDL 07:31
PROVIDERS: PCP Family Medicine; Visit Provider Internal Medicine Cardiovascular Disease
DX: R06.00 Dyspnea, unspecified (principal); I25.9 Chronic ischemic heart disease, unspecified; R06.02 Shortness of breath
CPT/HCPCS: 78452; 93017; A9500; J2785

== ENCOUNTER → 2019-11-16 11:23 | Outpatient (BNVA) | payer MEDICARE, SELFPAY | PROVIDERS: PCP Family Medicine; Visit Provider Nurse Practitioner Family | DX: Z20.828 Contact with and (suspected) exposure to other viral communicable diseases (principal) | CPT/HCPCS: 87635 ==

== ENCOUNTER 2019-11-20 16:19 | Emergency (ER) | payer MEDICARE, SELFPAY ==
[2019-11-20 16:36] VITALS: BP 155/87; PULSE 81; RESP 18; TEMP 36.9; O2SAT 97; BMI 27.1
--- NOTE | 2019-11-20 16:53 | XRR_ITS ---
PROCEDURE INFORMATION: Exam: XR Chest, 1 View Exam date and time: 11/20/2019 5:06 PM Age: 84 years old Clinical indication: Condition or disease; Other: Covid; Prior surgery; Surgery type: Breast reduction TECHNIQUE: Imaging protocol: XR of the chest Views: 1 view. COMPARISON: CT chest w con* [id number] 07/12/2019 11:53 AM FINDINGS: Lungs: No consolidation. Pleural space: No pleural effusion. No pneumothorax. Heart/Mediastinum: No cardiomegaly. Diaphragm: Chronic elevation of the right hemidiaphragm. Bones/joints: No acute fracture. XR/XR chest 1V portable [id number] IMPRESSION: No acute findings.
--- NOTE | 2019-11-20 16:54 | ECG_ITS ---
[facility] Test Date: 2019-11-20 Pat Name: Stacie Hernandez Department: Room: Gender: Female Assistant Store Director: : 1935 Requested By: Eloise Palacio Order Number: [id number] Lety MD: Alireza Gtz M.D. Measurements Intervals [place] Rate: 66 P: 26 TN: 167 QRS: -14 QRSD: 90 T: 71 QT: 445 QTc: 470 Interpretive Statements SINUS RHYTHM MODERATE ST DEPRESSION [0.05+ mV ST DEPRESSION] Compared to ECG 03/10/2018 14:43:27 ST (T wave) deviation now present Electronically Signed On 11-22-2019 20:37:40 CDT by Alireza Gtz M.D. [id number]
[2019-11-20 17:06] LABS: Basophils % 0.3 %; Eosinophils # 0.1 10^3/uL (0.0-0.8); Hematocrit 41.5 % (37.0-47.0); Hemoglobin 14.1 g/dL (11.5-15.3); Lymphocytes # 0.8 10^3/uL (0.8-4.8); Lymphocytes % 26.9 %; Mean Corpuscular Hemoglobin 31.2 pg (28.0-34.0); Mean Corpuscular Volume 91.8 fL (81-99); Mean Platelet Volume 10.4 fL (7.4-10.4); Monocytes # 0.4 10^3/uL (0.2-0.9); Monocytes % 12.3 %; Neutrophils # 1.75 10^3/uL (1.8-7.7); Neutrophils % 58.2 %; Nucleated Red Blood Cells % 0 %; Platelet Count 206 10^3/cmm (130-400); Red Blood Count 4.52 10^6/uL (4.1-5.3); Red Cell Distribution Width 11.8 % (12.1-15.1)
--- NOTE | 2019-11-20 17:10 | ED_ITS ---
HPI - Arrhythmia/Palpitations General: Chief Complaint: Arrhythmia/Palpitations Stated Complaint: High BP/COVID ++ Time Seen by Provider: 11/20/19 16:40 History of Present Illness: HPI narrative: This patient is an 84-year-old female who presents with complaints that her blood pressure is too high and her heart is racing. She reports that she was diagnosed with COVID based on a positive test that was done on Tuesday. She started having symptoms Tuesday even ing and into Tuesday. She started with a cough, then fever and body aches, malaise, mild shortness of breath. She has a pulse ox at home and said that is been running okay. She has not had vomiting or diarrhea. She has been very weak and tired. She said today she felt a little better and got up to do the dishes. That is when she noticed that her heart was racing. She checked her blood pressure and it was in the 150s systolic. Her heart rate was in the 110s to 120s. She said she is never had anything like this happen before. She feels okay at the time of my evaluation. complaint: rapid heart beat Onset (ago): hour(s) (2 or 3) Duration: now resolved Severity: moderate Context: occurred during exertion (Mild exertion) Associated symptoms: Reports cough, nausea and short of breath Review of Systems General: Reports: 10 or more systems reviewed and unremarkable except in HPI and below Const: Reports: fever(s), fatigue and malaise; Denies: chills Eyes: Denies: change in vision ENMT: Denies: odynophagia Card: Denies: chest pain or swelling of feet/ankles Resp: Reports: dyspnea and non-productive cough; Denies: productive cough GI: Reports: nausea : Denies: flank pain or difficulty voiding Musc: Denies: neck pain or back pain Skin/Breast: Denies: rash Neuro: Reports: weakness in extremities (Chronic in her left leg due to prior stroke); Denies: headache(s) or numbness in extremities Marcel/Lymph: Denies: easy bruising or easy bleeding [facility] ED PFSH: Medical History CVA (cerebral vascular accident) Hyperlipidemia Surgical History H/O mastectomy History of cholecystectomy History of hysterectomy Family History Denies family history of CAD (coronary artery disease) Hypertension Social History Smoking and tobacco status: never smoked Alcohol intake: never Current gender identity: Female Physical Exam Const: COMMON NORMALS: no acute distress, patient oriented x3, no limitations and alert GENERAL APPEARANCE: cooperative and comfortable HENMT: HEAD & SCALP: normal to inspection FACE & SINUS: normal facial exam Eye: GENERAL EYE: appearance normal, both eyes and all related structures Neck/C-Spine: COMMON NORMALS: supple, no meningeal signs and no JVD Chest: COMMONS NORMALS: normal inspection of the chest Resp: COMMON NORMALS: normal respiratory effort, No use of accessory muscles and clear to auscultation bilaterally AUSCULTATION: clear to auscultation bilaterally Cardio: COMMON NORMALS: no JVD, regular rate, regular rhythm and No murmurs present (Cardio) RATE: regular rate RHYTHM: regular rhythm GI: COMMON NORMALS: Normal to inspection, nondistended, normoactive bowel sounds present, Soft to palpation and non-tender INSPECTION: Yes normal to inspection AUSCULTATION: Yes normoactive bowel sounds PALPATION: Yes Soft to palpation Back/Pelvis: COMMON NORMALS: thoracic and lumbar spine normal to inspection Extremity: COMMON NORMALS: normal to inspection Neuro: COMMON NORMALS: patient oriented x3, moves all extremities, no focal motor deficits and no sensory deficits noted SENSORIUM/ORIENTATION: Yes alert MENINGEAL SIGNS: Yes no meningeal signs Psych: COMMON NORMALS: mental status grossly normal, cooperative and normal affect Skin: COMMON NORMALS: no rashes or lesions noted and turgor normal GENERAL SKIN EXAM: no rashes or lesions noted and turgor normal Course ED course: This patient has known COVID. She came in with what probably was anxiety. She may also have been a little dehydrated. She complained of some high blood pressure and tachycardia. This had completely resolved when I saw her. She was not requiring oxygen. She was impatient with my work-up and wanted to go home. She looks very well and I think is handling this illness well. She was discharged home with return precautions. She has a pulse ox at home already. Vital Signs: Vital signs: Vital Signs Temperature 98.0 F 11/20/19 19:05 Pulse Rate 75 11/20/19 19:05 Respiratory Rate 18 11/20/19 19:05 Blood Pressure 166/82 11/20/19 19:05 Pulse Oximetry 97 11/20/19 19:05 MDM - Arrhythmia/Palpitations Lab Data: Labs: Lab Results 11/20/19 11/20/19 11/20/19 Range/Units 16:50 16:50 16:50 WBC 3.0 L (4.0-10.0) 10^3/ uL RBC 4.52 (4.1-5.3) 10^6/u L Hgb 14.1 (11.5-15.3) g/dL Hct 41.5 (37.0-47.0) % MCV 91.8 (81-99) fL MCH 31.2 (28.0-34.0) pg MCHC 34.0 (30.0-36.0) g/dL RDW 11.8 L (12.1-15.1) % Plt Count 206 (130-400) 10^3/c mm MPV 10.4 (7.4-10.4) fL Neut % (Auto) 58.2 % Lymph % (Auto) 26.9 % Lincoln % (Auto) 12.3 % Eos % (Auto) 2.0 % Baso % (Auto) 0.3 % Neut # (Auto) 1.75 L (1.8-7.7) 10^3/u L Lymph # (Auto) 0.8 (0.8-4.8) 10^3/u L Lincoln # (Auto) 0.4 (0.2-0.9) 10^3/u L Eos # (Auto) 0.1 (0.0-0.8) 10^3/u L Baso # (Auto) 0.0 (0.0-0.1) 10^3/u L Nucleated RBC % (a uto) 0 % Nucleated RBCs # 0.0 /100WBC PT 13.50 (12.1-14.9) SECO NDS INR 1.00 (0.8-1.2) Fibrinogen 363 (174-498) mg/dL D-Dimer 1.95 H (0-0.59) ug/mIFE U Sodium 133 L (136-145) mmol/L Potassium 3.8 (3.5-5.1) mmol/L Chloride 97 L (98-107) mmol/L Carbon Dioxide 20 L (22-29) mmol/L Anion Gap 19.8 H (5-19) BUN 10 (8-23) mg/dL Creatinine 0.7 (0.5-0.9) mg/dL GFR Calculation Not Reportable Glucose 120 H (65-115) mg/dL Calculated Osmolal ity 276 L (285-295) mOsm/k g Lactic Acid (0.5-2.2) mmol/L Calcium 9.2 (8.5-10.5) mg/dL Magnesium 1.6 L (1.7-2.3) mg/dL Ferritin 183 H (15-150) ng/mL Total Bilirubin 0.6 (0.15-1.2) mg/dL AST 27 (0-32) U/L ALT 12 (0-33) U/L Alkaline Phosphata se 49 (35-105) IU/L Troponin T Baselin e (0-10) ng/L Troponin T 120 Min gambell (0-10) ng/L Delta Troponin T (0-10) ABS# C-Reactive Protein 1.6 (0.0-4.9) mg/L NT-Pro-B Natriuret Pep 187 (0-450) pg/mL Total Protein 6.9 (6.6-8.7) g/dL Albumin 4.2 (3.5-5.2) g/dL Globulin 2.7 (1.3-4.6) g/dL Procalcitonin 0.06 (0-0.5) ng/mL Influenza Type A A g (Negative) Influenza Type B A g (Negative) 11/20/19 11/20/19 11/20/19 Range/Units 16:50 16:50 17:04 WBC (4.0-10.0) 10^3/ uL RBC (4.1-5.3) 10^6/u L Hgb (11.5-15.3) g/dL Hct (37.0-47.0) % MCV (81-99) fL MCH (28.0-34.0) pg MCHC (30.0-36.0) g/dL RDW (12.1-15.1) % Plt Count (130-400) 10^3/c mm MPV (7.4-10.4) fL Neut % (Auto) % Lymph % (Auto) % Lincoln % (Auto) % Eos % (Auto) % Baso % (Auto) % Neut # (Auto) (1.8-7.7) 10^3/u L Lymph # (Auto) (0.8-4.8) 10^3/u L Lincoln # (Auto) (0.2-0.9) 10^3/u L Eos # (Auto) (0.0-0.8) 10^3/u L Baso # (Auto) (0.0-0.1) 10^3/u L Nucleated RBC % (a uto) % Nucleated RBCs # /100WBC PT (12.1-14.9) SECO NDS INR (0.8-1.2) Fibrinogen (174-498) mg/dL D-Dimer (0-0.59) ug/mIFE U Sodium (136-145) mmol/L Potassium (3.5-5.1) mmol/L Chloride (98-107) mmol/L Carbon Dioxide (22-29) mmol/L Anion Gap (5-19) BUN (8-23) mg/dL Creatinine (0.5-0.9) mg/dL GFR Calculation Glucose (65-115) mg/dL Calculated Osmolal ity (285-295) mOsm/k g Lactic Acid 1.5 (0.5-2.2) mmol/L Calcium (8.5-10.5) mg/dL Magnesium (1.7-2.3) mg/dL Ferritin (15-150) ng/mL Total Bilirubin (0.15-1.2) mg/dL AST (0-32) U/L ALT (0-33) U/L Alkaline Phosphata se (35-105) IU/L Troponin T Baselin e 21 H (0-10) ng/L Troponin T 120 Min gambell (0-10) ng/L Delta Troponin T (0-10) ABS# C-Reactive Protein (0.0-4.9) mg/L NT-Pro-B Natriuret Pep (0-450) pg/mL Total Protein (6.6-8.7) g/dL Albumin (3.5-5.2) g/dL Globulin (1.3-4.6) g/dL Procalcitonin (0-0.5) ng/mL Influenza Type A A g Negative (Negative) Influenza Type B A g Negative (Negative) 11/20/19 Range/Units 18:59 WBC (4.0-10.0) 10^3/ uL RBC (4.1-5.3) 10^6/u L Hgb (11.5-15.3) g/dL Hct (37.0-47.0) % MCV (81-99) fL MCH (28.0-34.0) pg MCHC (30.0-36.0) g/dL RDW (12.1-15.1) % Plt Count (130-400) 10^3/c mm MPV (7.4-10.4) fL Neut % (Auto) % Lymph % (Auto) % Lincoln % (Auto) % Eos % (Auto) % Baso % (Auto) % Neut # (Auto) (1.8-7.7) 10^3/u L Lymph # (Auto) (0.8-4.8) 10^3/u L Lincoln # (Auto) (0.2-0.9) 10^3/u L Eos # (Auto) (0.0-0.8) 10^3/u L Baso # (Auto) (0.0-0.1) 10^3/u L Nucleated RBC % (a uto) % Nucleated RBCs # /100WBC PT (12.1-14.9) SECO NDS INR (0.8-1.2) Fibrinogen (174-498) mg/dL D-Dimer (0-0.59) ug/mIFE U Sodium (136-145) mmol/L Potassium (3.5-5.1) mmol/L Chloride (98-107) mmol/L Carbon Dioxide (22-29) mmol/L Anion Gap (5-19) BUN (8-23) mg/dL Creatinine (0.5-0.9) mg/dL GFR Calculation Glucose (65-115) mg/dL Calculated Osmolal ity (285-295) mOsm/k g Lactic Acid (0.5-2.2) mmol/L Calcium (8.5-10.5) mg/dL Magnesium (1.7-2.3) mg/dL Ferritin (15-150) ng/mL Total Bilirubin (0.15-1.2) mg/dL AST (0-32) U/L ALT (0-33) U/L Alkaline Phosphata se (35-105) IU/L Troponin T Baselin e (0-10) ng/L Troponin T 120 Min gambell 20.73 H (0-10) ng/L Delta Troponin T -0.27 L (0-10) ABS# C-Reactive Protein (0.0-4.9) mg/L NT-Pro-B Natriuret Pep (0-450) pg/mL Total Protein (6.6-8.7) g/dL Albumin (3.5-5.2) g/dL Globulin (1.3-4.6) g/dL Procalcitonin (0-0.5) ng/mL Influenza Type A A g (Negative) Influenza Type B A g (Negative) Discharge Plan Discharge Patient Disposition: Home Clinical Impression: COVID-19 Condition: Stable Prescriptions: No Action simvastatin 10 mg tablet 10 mg PO DAILY RF: 0 atenolol 100 mg tablet 100 mg PO DAILY RF: 0 meloxicam 7.5 mg tablet 7.5 mg PO DAILY RF: 0 amlodipine 10 mg tablet 10 mg PO DAILY RF: 0 aspirin 81 mg tablet,delayed release (DR/EC) 81 mg PO DAILY RF: 0 buspirone 5 mg tablet 5 mg PO TID RF: 0 hydrocodone-acetaminophen 5-325 mg tablet 1 tab PO Q8H PRNRF: 0 multivitamin Capsule 1 cap PO DAILY RF: 0 levothyroxine [Synthroid] 150 mcg tablet 150 mcg PO DAILY RF: 0 alprazolam [Xanax] 0.25 mg tablet 0.25 mg PO TID PRNRF: 0 citalopram 40 mg tablet 20 mg PO ONCE MDD 1 Qty: 30 RF: 5 potassium chloride 8 mEq capsule, extended release 8 meq PO DAILY Qty: 30 RF: 2 furosemide 20 mg tablet 20 mg PO DAILY Qty: 30 RF: 2 lisinopril 40 mg tablet 40 mg PO DAILY Qty: 90 RF: 0 Discharge Orders: Discharge Order (Routine); Ordered 11/20/19 Ordered By: Eloise Gracia Referrals: Shelley Muir DO [Primary Care Provider] - Discharge Diet: Advance as tolerated Discharge Activity: Resume usual activity Patient Instructions: Viral Syndrome (ED) Activity Restrictions/Additional Instructions: Please make sure you are drinking plenty of fluids. Rest. Return to the emergency department if you feel worse in any way including increasing shortness of breath. If you can get a pulse oximeter then check your oxygen several times a day to make sure that it staying above 90%. Discharge Date/Time: 11/20/19 19:19 Coding Level of Care Code ED Shot Hole Shooter for Lore Saavedra Exam Comprehensive
[2019-11-20 17:11] VITALS: BP 124/73; PULSE 73; RESP 16; TEMP 36.7
[2019-11-20 17:22] LABS: Fibrinogen 363 mg/dL (174-498)
[2019-11-20 17:24] LABS: D Dimer 1.95 ug/mIFEU (0-0.59); Lactic Sepsis W/Reflex 1.5 mmol/L (0.5-2.2)
[2019-11-20 17:25] LABS: Troponin(5th) Baseline 21 ng/L (0-10)
[2019-11-20 17:52] LABS: NT Pro B Type Natriuretic Pept 187 pg/mL (0-450); Procalcitonin 0.06 ng/mL (0-0.5)
[2019-11-20 18:03] LABS: Alanine Aminotransferase 12 U/L (0-33); Albumin Level 4.2 g/dL (3.5-5.2); Alkaline Phosphatase 49 IU/L (35-105); Anion Gap 19.8 (5-19); Aspartate Amino Transferase 27 U/L (0-32); Blood Urea Nitrogen 10 mg/dL (8-23); C Reactive Protein 1.6 mg/L (0.0-4.9); Calcium 9.2 mg/dL (8.5-10.5); Carbon Dioxide 20 mmol/L (22-29); Chloride 97 mmol/L (98-107); Ferritin 183 ng/mL (15-150); Globulin 2.7 g/dL (1.3-4.6); Glucose 120 mg/dL (65-115); Magnesium 1.6 mg/dL (1.7-2.3); Osmolality Calculated 276 mOsm/kg (285-295); Potassium 3.8 mmol/L (3.5-5.1); Sodium 133 mmol/L (136-145); Total Bilirubin 0.6 mg/dL (0.15-1.2); Total Protein 6.9 g/dL (6.6-8.7)
[2019-11-20 18:08] VITALS: BP 139/89; PULSE 76; RESP 16; O2SAT 97
[2019-11-20 18:09] LABS: Influenza A by IFA Negative (Negative); Influenza B by IFA Negative (Negative)
[2019-11-20 19:05] VITALS: BP 166/82; PULSE 75; RESP 18; TEMP 36.7; O2SAT 97
[2019-11-20 19:34] LABS: Troponin 5 2HR 20.73 ng/L (0-10)
[2019-11-20 19:39] LABS: Troponin 5 2HR Delta -0.27 ABS# (0-10)
== END 2019-11-20 19:19 | disposition home or self-care (01) ==
PROVIDERS: Emergency Provider Emergency Medicine; PCP Family Medicine
DX: U07.1 COVID-19 (principal); Z79.82 Long term (current) use of aspirin; Z86.73 Personal history of transient ischemic attack (TIA), and cerebral infarction without residual deficits; E78.5 Hyperlipidemia, unspecified
CPT/HCPCS: 12345; 36415; 71045; 80053; 82728; 83605; 83735; 83880; 84145; 84484; 85025; 85378; 85384; 85610; 86140; 87804; 93005; 99283; 99284

== ENCOUNTER 2019-12-19 07:30 | Outpatient (CLI) | payer MEDICARE, SELFPAY ==
[2019-12-19 07:56] LABS: Basophils % 0.8 %; Eosinophils # 0.3 10^3/uL (0.0-0.8); Eosinophils % 5.5 %; Hematocrit 40.4 % (37.0-47.0); Lymphocytes # 1.1 10^3/uL (0.8-4.8); Lymphocytes % 22.1 %; Mean Corpuscular HGB Conc 32.2 g/dL (30.0-36.0); Mean Corpuscular Hemoglobin 31.3 pg (28.0-34.0); Mean Corpuscular Volume 97.1 fL (81-99); Mean Platelet Volume 9.8 fL (7.4-10.4); Monocytes # 0.4 10^3/uL (0.2-0.9); Monocytes % 8.6 %; Neutrophils # 3.05 10^3/uL (1.8-7.7); Neutrophils % 62.4 %; Nucleated Red Blood Cells % 0 %; Platelet Count 270 10^3/cmm (130-400); Red Blood Count 4.16 10^6/uL (4.1-5.3); Red Cell Distribution Width 12.7 % (12.1-15.1); White Blood Count 4.9 10^3/uL (4.0-10.0)
[2019-12-19 08:18] LABS: Alanine Aminotransferase 10 U/L (0-33); Albumin Level 3.9 g/dL (3.5-5.2); Alkaline Phosphatase 53 IU/L (35-105); Anion Gap 10.1 (5-19); Aspartate Amino Transferase 22 U/L (0-32); Blood Urea Nitrogen 8 mg/dL (8-23); Calcium 9.4 mg/dL (8.5-10.5); Carbon Dioxide 30 mmol/L (22-29); Chloride 102 mmol/L (98-107); Globulin 2.7 g/dL (1.3-4.6); Glucose 93 mg/dL (65-115); Lactate Dehydrogenase 181 U/L (135-214); Osmolality Calculated 284 mOsm/kg (285-295); Potassium 4.1 mmol/L (3.5-5.1); Sodium 138 mmol/L (136-145); Total Bilirubin 0.4 mg/dL (0.15-1.2); Total Protein 6.6 g/dL (6.6-8.7)
[2019-12-20 01:47] LABS: 25 Hydroxy Vitamin D 17 ng/mL (30-100)
== END 2019-12-19 07:31 | disposition home or self-care (01) ==
LOC: ONCMED 14:20
PROVIDERS: PCP Family Medicine; Visit Provider Internal Medicine Medical Oncology
DX: C82.10 Follicular lymphoma grade II, unspecified site (principal); M81.0 Age-related osteoporosis without current pathological fracture
CPT/HCPCS: 80053; 82306; 83615; 85025

== ENCOUNTER 2019-12-20 13:03 | Outpatient (CLI) | payer MEDICARE, SELFPAY ==
[2019-12-20] MEDS: denosumab 60 mg SDV SUBCUT (14:00)
--- NOTE | 2019-12-28 10:49 | ONC FU_ITS ---
[facility] Patient Note Patient: Stacie Medellin Unit #: [id number]: 1935 Dictated By: Domitila BenitoDate of Visit: Dec 20, 2019 Onc MED Follow-Up/Prog Note Chief Complaint: Lymphoma. 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 On 02/08/2013 she was admitted with acute on chronic lower back pain and intractable nausea and vomiting. Her CT and follow up MRI revealed a right paraspinal mass measuring 6.2 cm with associated cord compression at T12 and with involvement of the spinal canal at L1. There was destruction of T12 and L1 vertebral bodies. The extraspinal component of the neoplasm displaced the abdominal aorta. CT-guided core needle biopsy on 02/09/2013 showed grade 1-2/3 follicular lymphoma with follicular and diffuse pattern of growth. Immunohistochemistry was positive for CD10, CD20, BCL 2, and negative for cyclin D1. Ki-67 was less than 5%. She was first seen on by Dr. Terrazas on 02/12/2013. LDH was 244, ESR 29. FLIPI score with low risk, with adverse factor being her age only. Her staging PET/CT on 02/16/2013 showed 6 cm retrocrural mass tracking into spinal canal at T12 with SUV of 5.5. There was a pathological fracture of L1 and partial compression fracture of T12. No other sites of malignancy were identified. A bone marrow biopsy on 02/22/2013 showed no evidence of metastatic disease. She completed definitive radiation therapy to 4000 cGy on 03/08/2013. Lumbar spine MRI on 03/28/2013 showed decrease in epidural soft tissue neoplasm. There was a new right and left lateral T11 bone involvement, concerning for progression of disease. LDH was 183. The followup CT of abdomen and pelvis on 04/20/2013 showed stable paraspinal mass, but increase in the compression fracture at T12. PET/CT on 06/16/2013 showed 4.7 cm paraspinous mass with negligible FDG uptake. There was a complete compression fracture of T12, partial compression fracture of L1. Some increased FDG uptake in T11 was thought to represent postradiation reaction. There were no new sites of lymphoma identified. A CT of the abdomen and pelvis on 12/07/2013 was without evidence of progression. The paraspinal mass was smaller. DEXA scan revealed significant osteoporosis. She began on therapy with Prolia. Bone scan as well as CT scans of the chest, abdomen, and pelvis on 10/01/2014 had no evidence of disease recurrence. There were T and L-spine compression fractures. She continued observation/expectant management. Her medical history is otherwise significant for right hemispheric stroke in 2011. She has hyperlipidemia, hypothyroidism, B12 deficiency, and anxiety/depression. She is a nonsmoker. INTERIM HISTORY: Dr Llanos had seen her for a follow-up visit in March 2016. At that time she was having back pain and she had somewhat limited activity, but there was no evidence clinically of disease progression. She continued observation/expectant management. Surveillance CT scans on 10/19/2016 showed no adenopathy and no evidence of disease progression in the chest, abdomen, or pelvis. In May 2017 she restarted Prolia for the osteoporosis. Her repeat DEXA scan on 05/25/2018 showed T score -3.2 in the lumbar spine, -2.3 in the left proximal femur, and -3.0 in the right proximal femur. She has continued the Prolia every 6 months and has tolerated it well. Mrs. Medellin is here today for follow-up. She is due for Prolia. Her last Prolia was May 16, 2019. She was delayed in November at her normal schedule time due positive Covid confirmation on 11/16/2019. She states she had a mild case just had achy and fever but did not require admission. She states she did have little trouble breathing but that is all improving at this point. She denies any new concerns today. She has not had fever for at least the last 72 hours. She is had some intermittent bone and back pain. She has tried meloxicam in the past and did not have much relief with this. She states her bowel and bladder are normal. Her appetite is good her energy is good. She is very jovial. She is very independent and continues to live by herself. She takes care of her self well. Her ECOG is 1. Past Medical History: Cancer Cerebrovascular disease Hypercholesterolemia L-spine compression fracture Vitamin b12 deficiency Stroke in 2011 Past Surgical History: Bone marrow aspiration in 2013 Bone marrow biopsy in [address] in 2013 Biopsy of paraspinous mass in 2013 Ct bone density in 2010 Allergies: Niacin Medications: Aspirin 1 (81 mg) Tablet Oral daily Atenolol-Chlorthalidone 1 (100-25 mg) Tablet Oral daily busPIRone HCl 1 Tablet (of 5 mg) Oral t.i.d. PRN CeleXA 1 (20 mg) Tablet Oral daily Hydrocodone-Acetaminophen (5-325 mg) Tablet Oral Take as Directed Lisinopril 1 (40 mg) Tablet Oral daily Multivital 1 Tablet Oral daily Simvastatin 1 (20 mg) Tablet Oral daily Synthroid 1 (150 mcg) Tablet Oral daily Xanax 1 Tablet (of 0.25 mg) Oral PRN Family History: Ms. Medellin does not know if her mother is alive. Ms. Medellin does not know if her father is alive. Social History: Ms. Medellin is and she is retired. Ms. Medellin has never smoked. She has no history of drinking. Ms. Medellin reports no contact with hazardous material. pt has no desire to start. tr. Review Of Symptoms: Constitutional Mild fatigue. Denies fevers, chills, night sweats, or weight loss. Allergic/Immunologic No reactions. Eyes Denies significant visual changes. No diplopia. No amaurosis. ENMT Hearing getting worse. Denies sore throat, mouth sores, difficulty or changes in swallowing ability, and/or sinus drainage. Endocrine No diabetes, thyroid disease or hormone replacement. Denies hot flashes or night sweats. Hematologic/Lymphatic Denies easy bruising or bleeding. The patient denies any tender or palpable lymph nodes. Respiratory Dyspnea on exertion-stable. Denies chest pain, cough or hemoptysis. Denies orthopnea. Cardiovascular Denies anginal chest pain, palpitations or orthopnea. Gastrointestinal Denies nausea, vomiting, diarrhea, GI bleeding, or constipation. Denies change in bowel habits and/or stool color, no heartburn or early satiety. Genitourinary (F) No hematuria, hesitancy, incontinence, vaginal bleeding, discharge or other problems with urination. Musculoskeletal Pain in back-CHRONIC. Denies swelling or redness. No decreased range of motion. No new pain. Integumentary Denies chronic rashes, inflammation, ulcerations or skin changes. Neurologic Denies headache, blurred vision, and no areas of focal weakness or numbness. Normal gait. No sensory problems. Psychiatric Denies insomnia, depression, lamonte or mood swings. Vital Signs: Performed on Dec 20, 2019 13:12 Height - 60.00 in Weight - 98.0 lbs (LOW) BSA - 1.38 sq.m BMI - 19.14 Temperature - 98.2 F (LOW) Pulse - 68 /min Respiration - 24 /min BP - 166/78 mm(hg) (HIGH) O2 Sat - 97 % Pain - 0,1 - No physically strenuous activity, but ambulatory and able to carry out light or sedentary work (e.g. office work, light house work). (ECOG) Physical Examination: Constitutional Alert, oriented, no acute distress. Skin pink, warm and dry. Head Normocephalic; atraumatic. Eyes Conjunctivae and sclerae are clear and without icterus. Pupils are reactive and equal. ENMT Sinuses are nontender. No oral exudates, ulcers, masses, thrush or mucositis. Oropharynx clear. Tongue normal. No oral lesions. Neck Supple without masses or thyromegaly. No jugular venous distension. Hematologic/Lymphatic No petechiae or purpura. No tender or palpable lymph nodes in the cervical, supraclavicular, or axillary area. Respiratory Lungs are clear to auscultation without rhonchi or wheezing. Cardiovascular Regular rate and rhythm of heart with soft systolic murmur but no clicks, gallops or rubs. Abdomen Non-tender, non-distended, no masses or ascites. Good bowel sounds noted in all quads. No guarding or rebound tenderness. No pulsatile masses. Back/Spine Non-tender to palpation. Extremities No visible deformities, no cyanosis, clubbing or edema. Pulses 4+ and equal bilaterally. Musculoskeletal No tenderness or swelling, normal range of motion without obvious weakness. Integumentary No rashes or lesions. Neurologic No sensory or motor deficits, normal cerebellar function, normal gait. Psychiatric Alert and oriented times three. Coherent speech. Verbalizes understanding of our discussions today. Laboratory:Test performed on Dec 19, 2019 07:30 LDH (Total) 181 U/L Sodium 138 mmol/L Vitamin D (25-Hydroxy), Total 17 ng/mL Potassium 4.1 mmol/L Chloride 102 mmol/L CO2 30 mmol/L Anion Gap 10.1 BUN 8 mg/dL Creatinine 0.7 mg/dL Cr Clearance (Est) 43.48 mL/min Glucose 93 mg/dL Osmolality - Calculated 284 mOsm/kg Calcium 9.4 mg/dL Protein, Total 6.6 g/dL Albumin 3.9 g/dL Globulin 2.7 g/dL Bilirubin, Total 0.4 mg/dL ALT (SGPT) 10 U/L AST (SGOT) 22 U/L Alkaline Phosphatase 53 IU/L WBC 4.9 10 3/uL RBC 4.16 10 6/uL HGB 13.0 g/dL HCT 40.4 % MCV 97.1 fL MCH 31.3 pg MCHC 32.2 g/dL RDW 12.7 % Platelet Count 270 10 3/cmm MPV 9.8 fL Neutrophils 3.05 10 3/uL Lymphocytes 1.1 10 3/uL Monocytes 0.4 10 3/uL Eosinophils 0.3 10 3/uL Basophils 0.0 10 3/uL Neutrophil % 62.4 % Lymphocyte % 22.1 % Monocyte % 8.6 % Eosinophil % 5.5 % Basophils % 0.8 % NRBC % 0 % Impression: 1. 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 She had low risk FLIPI score. 2. She also had associated pathologic fractures of T12 and L1. 3. She underwent definitive radiation therapy to the involved area, completed on 03/08/2013 to a total dose of 4000 cGy. 4. MRI of the lumbar spine on 03/28/2013 showed possible progression of disease in T11, but PET/CT on 06/16/2013 was suggestive of radiation related reaction. She had severe pain with further compression of T12, and she was found to have significant osteoporosis. She had subsequently started on treatment with Prolia. For some reason it was stopped following her injection in March 2015. 5. She has remain on observation for the lymphoma following completion of the radiation in February 2013. Her other medical illnesses include: 6. Hypertension. 7. Hyperlipidemia. 8. Hypothyroidism. 9. Cerebrovascular disease with history of right hemispheric stroke in 2011. 10. Anxiety/depression. Thus far during followup there has been no obvious recurrence/progression of the lymphoma. She had evidence of significant osteoporosis, for which she has been on treatment with Prolia. She continues with the Prolia. She will be due for follow-up DEXA scan in May 2020. Plan: 1. Continue observation of her lymphoma. 2. She will proceed with Prolia 60 mg subcutaneous injection today for her osteoporosis. 3. She will be due for follow-up bone density after May 25 as her last DEXA scan was May 25, 2018. She did have documented osteoporosis at that time. 4. Labs from 12/19/2019 were reviewed in detail discussed with Ms. medellin and a copy was given to her. WBC 4.9, hemoglobin 13 platelets 270,000 ANC is 3000. Potassium 4.1 random glucose 93 creatinine 0.7 calcium was 9.4 LFTs are unremarkable and LDH is normal at 181. 5. We will plan for follow-up in 6 months at which time she will be due for repeat Prolia. She will need to recheck her labs to include a CBC CMP and LDH at that time. 6. Mrs. Medellin was encouraged to contact us in the interim should questions or problems arise. Signed By: Domitila Benito-, AOCNP Dago Llanos MD <<Signature on File>>
== END 2019-12-20 13:04 | disposition home or self-care (01) ==
LOC: ONCMED 13:06
PROVIDERS: PCP Family Medicine; Visit Provider Nurse Practitioner
DX: M81.0 Age-related osteoporosis without current pathological fracture (principal); C82.19 Follicular lymphoma grade II, extranodal and solid organ sites; I10 Essential (primary) hypertension; E78.5 Hyperlipidemia, unspecified; E03.9 Hypothyroidism, unspecified; I67.9 Cerebrovascular disease, unspecified; F41.8 Other specified anxiety disorders; Z92.3 Personal history of irradiation; Z79.899 Other long term (current) drug therapy
CPT/HCPCS: 96372; 99214; J0897

== ENCOUNTER 2020-06-17 09:30 | Outpatient (CLI) | payer MEDICARE, SELFPAY ==
[2020-06-17 09:49] LABS: Basophils % 0.5 %; Eosinophils # 0.1 10^3/uL (0.0-0.8); Eosinophils % 2.8 %; Hematocrit 37.1 % (37.0-47.0); Hemoglobin 12.6 g/dL (11.5-15.3); Lymphocytes # 0.9 10^3/uL (0.8-4.8); Lymphocytes % 22.4 %; Mean Platelet Volume 9.9 fL (7.4-10.4); Monocytes # 0.4 10^3/uL (0.2-0.9); Monocytes % 10.1 %; Neutrophils # 2.48 10^3/uL (1.8-7.7); Neutrophils % 63.9 %; Nucleated Red Blood Cells % 0 %; Platelet Count 223 10^3/cmm (130-400); Red Blood Count 3.71 10^6/uL (4.1-5.3); Red Cell Distribution Width 12.4 % (12.1-15.1); White Blood Count 3.9 10^3/uL (4.0-10.0)
[2020-06-17 10:20] LABS: Alanine Aminotransferase 11 U/L (0-33); Albumin Level 4.1 g/dL (3.5-5.2); Alkaline Phosphatase 45 IU/L (35-105); Anion Gap 10.9 (5-19); Aspartate Amino Transferase 21 U/L (0-32); Blood Urea Nitrogen 11 mg/dL (8-23); Calcium 8.7 mg/dL (8.5-10.5); Carbon Dioxide 28 mmol/L (22-29); Chloride 102 mmol/L (98-107); Globulin 2.4 g/dL (1.3-4.6); Glucose 95 mg/dL (65-115); Lactate Dehydrogenase 207 U/L (135-214); Osmolality Calculated 283 mOsm/kg (285-295); Potassium 3.9 mmol/L (3.5-5.1); Sodium 137 mmol/L (136-145); Total Bilirubin 0.5 mg/dL (0.15-1.2); Total Protein 6.5 g/dL (6.6-8.7)
== END 2020-06-17 09:31 | disposition home or self-care (01) ==
LOC: ONCMED 06-18 08:26
PROVIDERS: PCP Family Medicine; Visit Provider Nurse Practitioner
DX: Z85.79 Personal history of other malignant neoplasms of lymphoid, hematopoietic and related tissues (principal)
CPT/HCPCS: 80053; 83615; 85025

== ENCOUNTER 2020-06-18 12:23 | Outpatient (CLI) | payer MEDICARE, SELFPAY ==
[2020-06-18] MEDS: denosumab 60 mg SDV SUBCUT (13:16)
--- NOTE | 2020-06-18 16:57 | ONC FU_ITS ---
Dr. Llanos Patient Follow-Up Note Patient: Stacie Hernandez Unit #: [id number]: 1935 Dicatated By: Dago Llanos M.D.Date of Visit:June 18, 2020 Onc Med Follow-up/Prog Note Chief Complaint: Lymphoma. 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 On 02/08/2013 she was admitted with acute on chronic lower back pain and intractable nausea and vomiting. Her CT and follow up MRI revealed a right paraspinal mass measuring 6.2 cm with associated cord compression at T12 and with involvement of the spinal canal at L1. There was destruction of T12 and L1 vertebral bodies. The extraspinal component of the neoplasm displaced the abdominal aorta. CT-guided core needle biopsy on 02/09/2013 showed grade 1-2/3 follicular lymphoma with follicular and diffuse pattern of growth. Immunohistochemistry was positive for CD10, CD20, BCL 2, and negative for cyclin D1. Ki-67 was less than 5%. She was first seen on by Dr. Terrazas on 02/12/2013. LDH was 244, ESR 29. FLIPI score with low risk, with adverse factor being her age only. Her staging PET/CT on 02/16/2013 showed 6 cm retrocrural mass tracking into spinal canal at T12 with SUV of 5.5. There was a pathological fracture of L1 and partial compression fracture of T12. No other sites of malignancy were identified. A bone marrow biopsy on 02/22/2013 showed no evidence of metastatic disease. She completed definitive radiation therapy to 4000 cGy on 03/08/2013. Lumbar spine MRI on 03/28/2013 showed decrease in epidural soft tissue neoplasm. There was a new right and left lateral T11 bone involvement, concerning for progression of disease. LDH was 183. The followup CT of abdomen and pelvis on 04/20/2013 showed stable paraspinal mass, but increase in the compression fracture at T12. PET/CT on 06/16/2013 showed 4.7 cm paraspinous mass with negligible FDG uptake. There was a complete compression fracture of T12, partial compression fracture of L1. Some increased FDG uptake in T11 was thought to represent postradiation reaction. There were no new sites of lymphoma identified. A CT of the abdomen and pelvis on 12/07/2013 was without evidence of progression. The paraspinal mass was smaller. DEXA scan revealed significant osteoporosis. She began on therapy with Prolia. Bone scan as well as CT scans of the chest, abdomen, and pelvis on 10/01/2014 had no evidence of disease recurrence. There were T and L-spine compression fractures. She continued observation/expectant management. Her medical history is otherwise significant for right hemispheric stroke in 2011. She has hyperlipidemia, hypothyroidism, B12 deficiency, and anxiety/depression. She is a nonsmoker. INTERIM HISTORY: I had seen her for a follow-up visit in March 2016. At that time she was having back pain and she had somewhat limited activity, but there was no evidence clinically of disease progression. She continued observation/expectant management. Surveillance CT scans on 10/19/2016 showed no adenopathy and no evidence of disease progression in the chest, abdomen, or pelvis. In May 2017 she restarted Prolia for the osteoporosis. Her repeat DEXA scan on 05/25/2018 showed T score -3.2 in the lumbar spine, -2.3 in the left proximal femur, and -3.0 in the right proximal femur. With those findings she continued treatment with Prolia at 6-month intervals. She is seen for a scheduled visit. She has not been feeling good. She says she has been having a lot of depression and that she has been crying a lot. She is also been having a lot of pain in her left leg, enough that it has significantly affected her activity. She is now mostly sedentary. Her ECOG score is 3. She says that food does not taste good. She does not have fever or night sweats. She has some sinus drainage and she occasionally has sore throat. She has just occasional cough. She is sometimes short of breath. She does not complain of chest pain. She complains that her stomach feels queasy. Bowel function has not been as good. Bladder function has been okay, but she does not void very frequently. She attributes that to not drinking enough water. She has pain in her left leg from her knee to the ankle. She has occasional catches when she moves. She has chronic back pain, which is unchanged. She does not complain of headache or dizziness. She does have some numbness/tingling in the left leg. Medications: Aspirin 1 (81 mg) Tablet Oral daily, Atenolol-Chlorthalidone 1 (100-25 mg) Tablet Oral daily, busPIRone HCl 1 Tablet (of 5 mg) Oral t.i.d. PRN, CeleXA 1 (20 mg) Tablet Oral daily, Hydrocodone-Acetaminophen (5-325 mg) Tablet Oral Take as Directed, Lisinopril 1 (40 mg) Tablet Oral daily, Multivital 1 Tablet Oral daily, Simvastatin 1 (20 mg) Tablet Oral daily, Synthroid 1 (150 mcg) Tablet Oral daily, Xanax 1 Tablet (of 0.25 mg) Oral PRN Allergies: Niacin Vital Signs: Performed on June 18, 2020 13:09 Height - 60.00 in Temperature - 98.6 F Pulse - 83 /min Respiration - 18 /min BP - 169/86 mm(hg) (HIGH) O2 Sat - 97 % Pain - 10 Fatigue - 8 Physical Examination: Constitutional - She appears somewhat weak generally, Eyes - Sclerae nonicteric. Conjunctivae clear, ENMT - No lesions noted in the oral cavity, Hematologic/Lymphatic - No cervical, clavicular, or axillary adenopathy, Respiratory - Lungs are clear with good air movement bilaterally, Cardiovascular - Heart rhythm is regular. There is no gallop or rub noted, Abdomen - Soft. Liver and spleen are not enlarged. There is no abdominal mass or ascites noted and there is no inguinal adenopathy, Extremities - No edema. There are scattered small purpuric lesions on the arms, Neurologic - There is mild weakness in the left leg and foot, and she does have difficulty ambulating. Lab/Imaging: CBC shows hemoglobin 12.6 g, white blood cell count 3900, and platelet count 223,000. Comprehensive metabolic profile is unremarkable. LDH is normal at 207 U/L. Problem List: 1. Grade 1-2/3 follicular lymphoma, stage IA, involving paraspinal mass with associated cord compression, initially diagnosed in February 2013. She had low risk FLIPI score. 2. Hypertension. 3. Hyperlipidemia. 4. Hypothyroidism. 5. Osteoporosis. 6. Cerebrovascular disease with history of right hemispheric stroke in 2011. 7. Anxiety/depression. Problems Addressed with this Encounter and Plan: 1. 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 She had low risk FLIPI score. She had associated pathologic fractures of T12 and L1. She underwent definitive radiation therapy to the involved area, completed on 03/08/2013 to a total dose of 4000 cGy. A repeat MRI of the lumbar spine on 03/28/2013 showed possible progression of disease in T11, but PET/CT on 06/16/2013 was suggestive of radiation related reaction. With those findings she was then followed on observation for the lymphoma. As of her follow-up visit in December 2019 she has not been having any symptoms to suggest progression of the lymphoma. However, since then she has developed increased pain and weakness in her left leg, significant enough to affect her activity. She also has continued to have significant back pain. With those changes, I will schedule her for repeat MRI of the thoracic and lumbar spine. She will have further evaluation as indicated. 2. During followup she was found on MRI to have further compression of T12, and she was then found to have significant osteoporosis. She had subsequently started on treatment with Prolia. For some reason it was stopped following her injection in March 2015, but restarted in May 2017. Her repeat DEXA scan on 05/25/2018 still showed evidence of osteoporosis with T score -3.2 in the lumbar spine, -2.3 in the left femur and -3.0 in the right femur. With those findings, she has continued Prolia at 6-month intervals. She has tolerated the Prolia with no adverse effects and she will be given her scheduled dosage today of 60 mg by subcutaneous injection. 3. She has anxiety and depression and lately her depression has worsened significantly. In the past she has been taking citalopram and I will go ahead and restart that at 20 mg daily. Signed By: Dago Llanos M.D. <<Signature on File>>
== END 2020-06-18 12:24 | disposition home or self-care (01) ==
LOC: ONCMED 12:26
PROVIDERS: PCP Family Medicine; Visit Provider Internal Medicine Medical Oncology
DX: C82.38 Follicular lymphoma grade IIIa, lymph nodes of multiple sites (principal); I10 Essential (primary) hypertension; E78.5 Hyperlipidemia, unspecified; E03.9 Hypothyroidism, unspecified; M81.0 Age-related osteoporosis without current pathological fracture; F41.9 Anxiety disorder, unspecified; F32.9 Major depressive disorder, single episode, unspecified; Z86.73 Personal history of transient ischemic attack (TIA), and cerebral infarction without residual deficits; Z79.899 Other long term (current) drug therapy; Z92.21 Personal history of antineoplastic chemotherapy
CPT/HCPCS: 96372; 99214; J0897

== ENCOUNTER 2020-07-14 11:32 | Outpatient (CLI) | payer MEDICARE, SELFPAY ==
--- NOTE | 2020-07-14 11:36 | MR_ITS ---
WS: [id number] MRI LUMBAR SPINE NONCONTRAST HISTORY: LYMPHOMA OF L1;INCREASED PAIN/WEAKNESS LEFT LEG COMPARISON: 02/12/2015 TECHNIQUE: Sagittal and axial multisequence imaging is submitted. Patient was unable to tolerate post contrast imaging. Numerous prior compression fractures are reidentified including T11, T12 and L1. There is a focal are a of increased T2 signal involving the inferior endplate of L1. This represents a significant improve ment since the prior study. Increase in the normal lumbar lordosis. Focal kyphosis at the thoracolumbar junction due to the osteo porotic compression fractures. Mild retropulsion of the T11 and T12 vertebral bodies is unchanged. Disc space narrowing and desiccation is mild to moderate. Conus terminates normally at L1-2 disc level. L1-L2: No stenosis. L2-L3: Mild bilateral facet joint arthritis. No significant stenosis. L3-L4: Mild annular disc bulging with osteophytic ridging and facet joint arthritis. Mild foraminal n arrowing. L4-L5: Mild annular disc bulging with ligamentum flavum hypertrophy and facet arthritis. Asymmetric e ncroachment into the thecal sac. More prominent ligamentum flavum hypertrophy on the LEFT. Mild bilat eral foraminal stenosis and mild central stenosis. L5-S1: Mild annular disc bulging is asymmetric to the LEFT. Ligamentum flavum hypertrophy is more pro minent on the LEFT. Moderate LEFT foraminal stenosis. There is encroachment upon the LEFT S1 nerve ro ot by disc disease and ligamentum flavum disease. Only mild foraminal narrowing on the RIGHT. RIGHT renal cyst. Mild atherosclerosis of aorta. MR/MR lumbar spine wo con* [id number] IMPRESSION: 1. Stable severe T11 and T12 vertebral body fractures with slight retropulsion of posterior superior endplates. 2. 50% compression fracture of L1 is also stable. There is a small area of T2 signal along the inferior endplate which cannot be further evaluated without IV contrast. May represent residual or recurrent lymphoma. 3. Moderate LEFT foraminal and LEFT lateral recess stenosis at L5-S1. Signific ant encroachment upon the LEFT S1 nerve root.
== END 2020-07-14 11:33 | disposition home or self-care (01) ==
LOC: RADSHAW 11:33
PROVIDERS: PCP Family Medicine; Visit Provider Internal Medicine Medical Oncology
DX: M79.605 Pain in left leg (principal); C82.10 Follicular lymphoma grade II, unspecified site; R53.1 Weakness; N28.1 Cyst of kidney, acquired; I70.0 Atherosclerosis of aorta; M48.07 Spinal stenosis, lumbosacral region; S32.018A Other fracture of first lumbar vertebra, initial encounter for closed fracture; S22.080A Wedge compression fracture of T11-T12 vertebra, initial encounter for closed fracture; X58.XXXA Exposure to other specified factors, initial encounter
CPT/HCPCS: 72148

== ENCOUNTER 2020-07-16 11:44 | Outpatient (CLI) | payer MEDICARE, SELFPAY ==
--- NOTE | 2020-07-16 11:47 | MR_ITS ---
WS: [id number] MRI THORACIC SPINE with and without contrast. HISTORY: LYMPHOMA OF L1;INCREASED PAIN/WEAKNESS LEFT LEG COMPARISON: None available. TECHNIQUE: Multiplanar sequences are performed in sagittal and axial planes. Pre and postcontrast laila ging. Focal area of kyphosis centered at T11-12 due to severe vertebral planar compression fractures with m ild burst deformity. 2 to 3 mm retropulsion of posterior superior endplates of T11 and T12. 30% compr ession fracture of L1. T2 increased signal along the inferior endplate of L1. No signal abnormalities within the cord. 9 mm area of enhancement in the posterior inferior L1 vertebral body endplate. By history patient has been treated for prior lymphoma at L1. Suspicious for recurrence. No additional areas of abnormal en hancement. T1-2: Mild bilateral foraminal narrowing. T2-3: Mild LEFT foraminal narrowing due to facet disease. T3-4: Bilateral facet joint arthritis with moderate bilateral foraminal stenosis. T4-5: Bilateral foraminal narrowing. T5-6: Bilateral foraminal narrowing, RIGHT greater than LEFT. T6-7: Normal. T7-8: Moderate LEFT paracentral disc protrusion with moderate bilateral foraminal narrowing. T8-9: Small central disc protrusion with mild foraminal narrowing. T9-10: Small RIGHT paracentral disc protrusion and mild bilateral foraminal narrowing. T10-11: Moderate bilateral foraminal stenosis and mild central stenosis. T11-12: Mild retropulsion of the posterior vertebral body resulting in mild central and bilateral fo raminal stenosis. Bilateral renal cysts. MR/MR thoracic spine wo/w [id number] IMPRESSION: 1. 9 mm area of abnormal enhancement in the posterior inferior L1 vertebral bryson dy. Highly suspicious for recurrence of lymphoma. 2. L1 compression fracture by 30%. 3. Severe vertebral planar compression fractures at T11 and T12 with slight re tropulsion. 4. Multilevel foraminal stenoses. No severe stenosis.
[2020-07-16] MEDS: gadobenate dimeglumine 20 mL vial IV (12:50)
== END 2020-07-16 11:45 | disposition home or self-care (01) ==
LOC: RADSHAW 11:45
PROVIDERS: PCP Family Medicine; Visit Provider Internal Medicine Medical Oncology
DX: C82.10 Follicular lymphoma grade II, unspecified site (principal); M79.605 Pain in left leg; R53.1 Weakness; M48.04 Spinal stenosis, thoracic region; S22.088A Other fracture of T11-T12 vertebra, initial encounter for closed fracture; S32.018A Other fracture of first lumbar vertebra, initial encounter for closed fracture; X58.XXXA Exposure to other specified factors, initial encounter
CPT/HCPCS: 72157; A9577

== ENCOUNTER 2021-01-07 08:25 | Outpatient (CLI) | payer MEDICARE, SELFPAY ==
[2021-01-07 09:16] LABS: Basophils % 0.6 %; Eosinophils # 0.2 10^3/uL (0.0-0.8); Eosinophils % 4.5 %; Hematocrit 38.4 % (37.0-47.0); Hemoglobin 13.5 g/dL (11.5-15.3); Lymphocytes # 1.4 10^3/uL (0.8-4.8); Lymphocytes % 28.5 %; Mean Corpuscular HGB Conc 35.2 g/dL (30.0-36.0); Mean Corpuscular Hemoglobin 34.7 pg (28.0-34.0); Mean Corpuscular Volume 98.7 fl (81-99); Monocytes # 0.4 10^3/uL (0.2-0.9); Monocytes % 8.2 %; Neutrophils # 2.79 10^3/uL (1.8-7.7); Neutrophils % 57.6 %; Nucleated Red Blood Cells % 0 %; Platelet Count 216 10^3/cmm (130-400); Red Blood Count 3.89 10^6/uL (4.1-5.3); White Blood Count 4.9 10^3/uL (4.0-10.0)
[2021-01-07 09:37] LABS: Alanine Aminotransferase 10 U/L (0-33); Albumin Level 4.3 g/dL (3.5-5.2); Alkaline Phosphatase 46 IU/L (35-105); Anion Gap 13.8 (5-19); Aspartate Amino Transferase 21 U/L (0-32); Blood Urea Nitrogen 11 mg/dL (8-23); Calcium 9.2 mg/dL (8.5-10.5); Carbon Dioxide 28 mmol/L (22-29); Chloride 101 mmol/L (98-107); Globulin 2.3 g/dL (1.3-4.6); Glucose 84 mg/dL (65-115); Lactate Dehydrogenase 233 U/L (135-214); Osmolality Calculated 285 mOsm/kg (285-295); Potassium 4.8 mmol/L (3.5-5.1); Sodium 138 mmol/L (136-145); Total Bilirubin 0.5 mg/dL (0.15-1.2); Total Protein 6.6 g/dL (6.6-8.7)
[2021-01-07] MEDS: pneumococcal (23 valent) SDV 0.5 mL IM (09:44)
[2021-01-07] MEDS: denosumab 60 mg SDV SUBCUT (09:44)
[2021-01-07 09:51] LABS: 25 Hydroxy Vitamin D 30 ng/mL (30-100)
--- NOTE | 2021-01-10 13:29 | ONC FU_ITS ---
Dr. Llanos Patient Follow-Up Note Patient: Stacie Hernandez Unit #: [id number]: 1935 Dicatated By: Dago Llanos M.D.Date of Visit:Jan 07, 2021 Onc Med Follow-up/Prog Note Chief Complaint: Lymphoma. 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 On 02/08/2013 she was admitted with acute on chronic lower back pain and intractable nausea and vomiting. Her CT and follow up MRI revealed a right paraspinal mass measuring 6.2 cm with associated cord compression at T12 and with involvement of the spinal canal at L1. There was destruction of T12 and L1 vertebral bodies. The extraspinal component of the neoplasm displaced the abdominal aorta. CT-guided core needle biopsy on 02/09/2013 showed grade 1-2/3 follicular lymphoma with follicular and diffuse pattern of growth. Immunohistochemistry was positive for CD10, CD20, BCL 2, and negative for cyclin D1. Ki-67 was less than 5%. She was first seen on by Dr. Terrazas on 02/12/2013. LDH was 244, ESR 29. FLIPI score with low risk, with adverse factor being her age only. Her staging PET/CT on 02/16/2013 showed 6 cm retrocrural mass tracking into spinal canal at T12 with SUV of 5.5. There was a pathological fracture of L1 and partial compression fracture of T12. No other sites of malignancy were identified. A bone marrow biopsy on 02/22/2013 showed no evidence of metastatic disease. She completed definitive radiation therapy to 4000 cGy on 03/08/2013. Lumbar spine MRI on 03/28/2013 showed decrease in epidural soft tissue neoplasm. There was a new right and left lateral T11 bone involvement, concerning for progression of disease. LDH was 183. The followup CT of abdomen and pelvis on 04/20/2013 showed stable paraspinal mass, but increase in the compression fracture at T12. PET/CT on 06/16/2013 showed 4.7 cm paraspinous mass with negligible FDG uptake. There was a complete compression fracture of T12, partial compression fracture of L1. Some increased FDG uptake in T11 was thought to represent postradiation reaction. There were no new sites of lymphoma identified. A CT of the abdomen and pelvis on 12/07/2013 was without evidence of progression. The paraspinal mass was smaller. DEXA scan revealed significant osteoporosis. She began on therapy with Prolia. Bone scan as well as CT scans of the chest, abdomen, and pelvis on 10/01/2014 had no evidence of disease recurrence. There were T and L-spine compression fractures. She continued observation/expectant management. Surveillance CT scans on 10/19/2016 showed no adenopathy and no evidence of disease progression in the chest, abdomen, or pelvis. In May 2017 she restarted Prolia for the osteoporosis. Her repeat DEXA scan on 05/25/2018 showed T score -3.2 in the lumbar spine, -2.3 in the left proximal femur, and -3.0 in the right proximal femur. With those findings she continued treatment with Prolia at 6-month intervals. She continued expectant management for the lymphoma. Her medical history is otherwise significant for right hemispheric stroke in 2011. She has hyperlipidemia, hypothyroidism, B12 deficiency, and anxiety/depression. She is a nonsmoker. INTERIM HISTORY: A noncontrast lumbar spine MRI on 07/14/2020 showed stable appearance of severe T11 and T12 vertebral body fractures with slight retropulsion of posterior superior endplates. 50% compression fracture of L1 also appeared stable. A small area of T2 signal along the inferior endplate was not able be further evaluated without contrast. Moderate left foraminal and left lateral recess stenosis were noted at L5-S1, and there appeared to be significant and Gonzalez met upon the left S1 nerve root. Further evaluation with contrast enhanced MRI of the thoracic spine on 07/16/2020 showed a 9 mm area of abnormal enhancement in the posterior inferior L1 vertebral body, highly suspicious for recurrence of lymphoma. Restaging PET/CT on 08/19/2020 showed moderate to severe multilevel degenerative changes throughout the thoracolumbar spine, but there was no suspicious focal uptake to suggest recurrence/progression of lymphoma. Other findings included a small focus of mildly increased metabolic activity in the left pharynx, focal hypermetabolic activity in the right thigh musculature adjacent to the proximal femur, and metabolic foci of left lower lobe airspace disease, none of which appear to be suspicious for neoplastic disease. She is seen for a scheduled follow-up visit. She says she has been feeling more tired and it has become increasingly difficult for her to walk. She is using a walker for ambulation. ECOG score is 2. Her appetite is not very good, but her weight is up a few pounds. She has not had fever. Lately she has had occasional mild night sweating. She has not had sore mouth or throat and she does not have difficulty swallowing. She does not complain of cough, and she has not been having shortness of breath or chest pain. She occasionally has nausea and she sometimes has constipation. Bladder function is the same. She says she is not having very much back pain, but she does have significant pain in her left knee. She does not complain of headache or dizziness. She has some numbness in her left hand. She has no other focal neurologic symptoms. Medications: Aspirin 1 (81 mg) Tablet Oral daily, Atenolol-Chlorthalidone 1 (100-25 mg) Tablet Oral daily, busPIRone HCl 1 Tablet (of 5 mg) Oral t.i.d. PRN, CeleXA 1 (20 mg) Tablet Oral daily, Hydrocodone-Acetaminophen (5-325 mg) Tablet Oral Take as Directed, Lisinopril 1 (40 mg) Tablet Oral daily, Multivital 1 Tablet Oral daily, Simvastatin 1 (20 mg) Tablet Oral daily, Synthroid 1 (150 mcg) Tablet Oral daily, Xanax 1 Tablet (of 0.25 mg) Oral PRN Allergies: Niacin Vital Signs: Performed on Jan 07, 2021 10:43 Height - 60.00 in Weight - 104.6 lbs (HIGH) BSA - 1.42 sq.m BMI - 20.43 Temperature - 98.2 F (LOW) Pulse - 69 /min Respiration - 18 /min BP - 178/77 mm(hg) (HIGH) O2 Sat - 96 % Pain - 0 Fatigue - 9 Physical Examination: Constitutional - She appears generally frail, Eyes - Sclerae nonicteric. Conjunctivae clear, ENMT - No lesions noted in the oral cavity, Hematologic/Lymphatic - No cervical, clavicular, or axillary adenopathy, Respiratory - Lungs are clear with good air movement bilaterally, Cardiovascular - Heart rhythm is regular. There is no gallop or rub noted, Abdomen - Soft. Liver and spleen are not enlarged. There is no abdominal mass or ascites noted and there is no inguinal adenopathy, Extremities - No edema, Neurologic - She appears to have some weakness in the left leg. She is walking with a noticeable limp. Lab/Imaging: Test performed on Jan 07, 2021 08:50 LDH (Total) 233 U/L Sodium 138 mmol/L Vitamin D (25-Hydroxy), Total 30 ng/mL Potassium 4.8 mmol/L Chloride 101 mmol/L CO2 28 mmol/L Anion Gap 13.8 BUN 11 mg/dL Creatinine 0.9 mg/dL Cr Clearance (Est) 35.48 mL/min Glucose 84 mg/dL Osmolality - Calculated 285 mOsm/kg Calcium 9.2 mg/dL Protein, Total 6.6 g/dL Albumin 4.3 g/dL Globulin 2.3 g/dL Bilirubin, Total 0.5 mg/dL ALT (SGPT) 10 U/L AST (SGOT) 21 U/L Alkaline Phosphatase 46 IU/L WBC 4.9 10 3/uL RBC 3.89 10 6/uL HGB 13.5 g/dL HCT 38.4 % MCV 98.7 fl MCH 34.7 pg MCHC 35.2 g/dL RDW 15.0 % Platelet Count 216 10 3/cmm MPV 10.0 fL Neutrophils 2.79 10 3/uL Lymphocytes 1.4 10 3/uL Monocytes 0.4 10 3/uL Eosinophils 0.2 10 3/uL Basophils 0.0 10 3/uL Neutrophil % 57.6 % Lymphocyte % 28.5 % Monocyte % 8.2 % Eosinophil % 4.5 % Basophils % 0.6 % NRBC % 0 % Problem List: 1. Grade 1-2/3 follicular lymphoma, stage IA, involving paraspinal mass with associated cord compression, initially diagnosed in February 2013. She had low risk FLIPI score. 2. Hypertension. 3. Hyperlipidemia. 4. Hypothyroidism. 5. Osteoporosis. 6. Cerebrovascular disease with history of right hemispheric stroke in 2011. 7. Anxiety/depression. Problems Addressed with this Encounter and Plan: 1. 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 She had low risk FLIPI score. She had associated pathologic fractures of T12 and L1. She underwent definitive radiation therapy to the involved area, completed on 03/08/2013 to a total dose of 4000 cGy. A repeat MRI of the lumbar spine on 03/28/2013 showed possible progression of disease in T11, but PET/CT on 06/16/2013 was suggestive of radiation related reaction. With those findings she was then followed on observation for the lymphoma. As of her follow-up visit in December 2019 she has not been having any symptoms to suggest progression of the lymphoma. However, during subsequent follow-up she had reported increased pain and weakness in her left leg, significant enough to affect her activity. She also continued to have significant back pain. Her MRI of the thoracic spine on 07/16/2020 showed a 9 mm area of abnormal enhancement in the posterior inferior L1 vertebral body which was felt to be highly suspicious for recurrent lymphoma. However, her restaging PET/CT on 08/19/2020 showed no focal increased activity to correlate with that finding. Since then it has been increasingly difficult for her to ambulate, mainly due to pain in her left leg. It is uncertain to what extent that pain may be associated with the problems in her spine or her left knee joint. At this point, I am going to arrange for referral to Dr. Munoz in orthopedic clinic to try and help sort this out. 2. During followup she was found on MRI to have further compression of T12, and she was then found to have significant osteoporosis. She had subsequently started on treatment with Prolia. For some reason it was stopped following her injection in March 2015, but restarted in May 2017. Her repeat DEXA scan on 05/25/2018 still showed evidence of osteoporosis with T score -3.2 in the lumbar spine, -2.3 in the left femur and -3.0 in the right femur. With those findings, she has continued Prolia at 6-month intervals. She will be given Prolia 60 mg by subcutaneous injection today. Signed By: Dago Llanos M.D. <<Signature on File>>
== END 2021-01-07 08:26 | disposition home or self-care (01) ==
LOC: ONCMED 08:28
PROVIDERS: PCP Family Medicine; Visit Provider Internal Medicine Medical Oncology
DX: Z08 Encounter for follow-up examination after completed treatment for malignant neoplasm (principal); Z85.72 Personal history of non-Hodgkin lymphomas; I10 Essential (primary) hypertension; E78.5 Hyperlipidemia, unspecified; E03.9 Hypothyroidism, unspecified; M81.0 Age-related osteoporosis without current pathological fracture; F41.9 Anxiety disorder, unspecified; F32.9 Major depressive disorder, single episode, unspecified; Z86.73 Personal history of transient ischemic attack (TIA), and cerebral infarction without residual deficits; Z79.899 Other long term (current) drug therapy; Z92.3 Personal history of irradiation
CPT/HCPCS: 80053; 82306; 83615; 85025; 90732; 99214; J0897

== ENCOUNTER → 2021-01-15 09:43 | Outpatient (BNVA) | payer MEDICARE, SELFPAY | PROVIDERS: PCP Family Medicine; Referring Provider Internal Medicine Medical Oncology; Visit Provider Physician Assistant | DX: M54.9 Dorsalgia, unspecified (principal); S22.089S Unspecified fracture of T11-T12 vertebra, sequela; X58.XXXS Exposure to other specified factors, sequela; Z46.89 Encounter for fitting and adjustment of other specified devices | CPT/HCPCS: 72110; 97760; L0456 ==

== ENCOUNTER 2021-01-15 10:29 | Outpatient (CLI) | payer MEDICARE, SELFPAY | END 2021-01-15 10:30 | disposition home or self-care (01) | LOC: SPT 10:29 | PROVIDERS: PCP Family Medicine; Visit Provider Physician Assistant | DX: Z46.89 Encounter for fitting and adjustment of other specified devices (principal); M54.9 Dorsalgia, unspecified | CPT/HCPCS: 97760; L0456 ==

== ENCOUNTER 2021-08-12 11:12 | Oncology outpatient (recurring) (ONCR) | payer MEDICARE, SELFPAY ==
[2021-08-12 11:47] LABS: Basophils % 0.5 %; Eosinophils # 0.2 10^3/uL (0.0-0.8); Eosinophils % 3.5 %; Hematocrit 40.4 % (37.0-47.0); Hemoglobin 13.6 g/dL (11.5-15.3); Lymphocytes # 1.5 10^3/uL (0.8-4.8); Lymphocytes % 23.3 %; Mean Corpuscular HGB Conc 33.7 g/dL (30.0-36.0); Mean Corpuscular Hemoglobin 32.2 pg (28.0-34.0); Mean Corpuscular Volume 95.7 fl (81-99); Mean Platelet Volume 9.9 fL (7.4-10.4); Monocytes # 0.6 10^3/uL (0.2-0.9); Neutrophils # 4.11 10^3/uL (1.8-7.7); Neutrophils % 63.4 %; Nucleated Red Blood Cells % 0 %; Platelet Count 288 10^3/cmm (130-400); Red Blood Count 4.22 10^6/uL (4.1-5.3); Red Cell Distribution Width 12.2 % (12.1-15.1); White Blood Count 6.5 10^3/uL (4.0-10.0)
[2021-08-12 12:10] LABS: Alanine Aminotransferase 10 U/L (0-33); Albumin Level 4.4 g/dL (3.5-5.2); Alkaline Phosphatase 54 IU/L (35-105); Anion Gap 12.8 (5-19); Aspartate Amino Transferase 27 U/L (0-32); Blood Urea Nitrogen 15 mg/dL (8-23); Calcium 9.7 mg/dL (8.5-10.5); Carbon Dioxide 28 mmol/L (22-29); Chloride 100 mmol/L (98-107); Glucose 106 mg/dL (65-115); Lactate Dehydrogenase 207 U/L (135-214); Osmolality Calculated 283 mOsm/kg (285-295); Potassium 4.8 mmol/L (3.5-5.1); Sodium 136 mmol/L (136-145); Total Bilirubin 0.6 mg/dL (0.15-1.2); Total Protein 7.4 g/dL (6.6-8.7)
[2021-08-12 14:05] VITALS: BP 144/73; PULSE 69; RESP 18; TEMP 36.8; O2SAT 96
[2021-08-12] MEDS: denosumab 60 mg SDV SUBCUT (14:17)
[2021-08-12 14:18] VITALS: BP 142/74; PULSE 68; RESP 18; TEMP 36.2; O2SAT 97
== END 2021-09-06 23:59 | disposition home or self-care (01) ==
LOC: ONCMED 11:13
PROVIDERS: PCP Family Medicine; Visit Provider Internal Medicine Medical Oncology
DX: Z51.12 Encounter for antineoplastic immunotherapy (principal); M80.08XA Age-related osteoporosis with current pathological fracture, vertebra(e), initial encounter for fracture; C82.10 Follicular lymphoma grade II, unspecified site
CPT/HCPCS: 80053; 83615; 85025; 96372; 99214; J0897

== ENCOUNTER 2022-02-09 12:40 | Oncology outpatient (recurring) (ONCR) | payer MEDICARE, SELFPAY ==
[2022-02-09 13:50] LABS: Basophils % 0.4 %; Eosinophils # 0.2 10^3/uL (0.0-0.8); Eosinophils % 4.4 %; Hematocrit 36.1 % (37.0-47.0); Hemoglobin 12.2 g/dL (11.5-15.3); Lymphocytes # 1.4 10^3/uL (0.8-4.8); Lymphocytes % 28.5 %; Mean Corpuscular HGB Conc 33.8 g/dL (30.0-36.0); Mean Corpuscular Hemoglobin 37.4 pg (28.0-34.0); Mean Corpuscular Volume 110.7 fl (81-99); Mean Platelet Volume 10.4 fL (7.4-10.4); Monocytes # 0.4 10^3/uL (0.2-0.9); Monocytes % 9.1 %; Neutrophils % 57.2 %; Nucleated Red Blood Cells % 0 %; Platelet Count 209 10^3/cmm (130-400); Red Blood Count 3.26 10^6/uL (4.1-5.3); Red Cell Distribution Width 14.6 % (12.1-15.1); White Blood Count 4.7 10^3/uL (4.0-10.0)
[2022-02-09 14:17] LABS: Alanine Aminotransferase 11 U/L (0-33); Albumin Level 4.1 g/dL (3.5-5.2); Alkaline Phosphatase 48 U/L (35-105); Anion Gap 12.6 (5-19); Aspartate Amino Transferase 25 U/L (0-32); Blood Urea Nitrogen 14 mg/dL (8-23); Calcium 10.2 mg/dL (8.5-10.5); Carbon Dioxide 29 mmol/L (22-29); Chloride 99 mmol/L (98-107); Globulin 2.9 g/dL (1.3-4.6); Glucose 90 mg/dL (65-115); Lactate Dehydrogenase 239 U/L (135-214); Osmolality Calculated 282 mOsm/kg (285-295); Potassium 4.6 mmol/L (3.5-5.1); Sodium 136 mmol/L (136-145); Total Bilirubin 0.5 mg/dL (0.15-1.2)
[2022-02-09] MEDS: denosumab 60 mg SDV SUBCUT (14:28)
[2022-02-09 14:32] LABS: 25 Hydroxy Vitamin D 32 ng/mL (30-100)
[2022-02-09 15:16] LABS: Thyroid Stimulating Hormone 2.65 uIU/mL (0.27-4.20); Vitamin B12 902 pg/mL (232-1245)
== END 2022-03-09 23:59 | disposition home or self-care (01) ==
PROVIDERS: PCP Family Medicine; Visit Provider Internal Medicine Medical Oncology
DX: Z08 Encounter for follow-up examination after completed treatment for malignant neoplasm; Z85.72 Personal history of non-Hodgkin lymphomas; M54.50 Low back pain, unspecified; M81.0 Age-related osteoporosis without current pathological fracture; M48.50XA Collapsed vertebra, not elsewhere classified, site unspecified, initial encounter for fracture; F41.9 Anxiety disorder, unspecified; Z79.899 Other long term (current) drug therapy; Z92.3 Personal history of irradiation
CPT/HCPCS: 36415; 80053; 82306; 82607; 83615; 84443; 85025; 96372; 99214; J0897

== ENCOUNTER 2022-06-18 16:01 | Outpatient (CLI) | payer MEDICARE, SELFPAY ==
--- NOTE | 2022-06-18 16:12 | CT_ITS ---
WS: [id number] CT HEAD TECHNIQUE: Noncontrast CT of the head obtained from the skullbase to the vertex. CLINICAL INFORMATION: PERSONAL HISTORY OF CEREBROVASCULAR ACCIDENT COMPARISON: 2019 DLP: 1009.[address] scans at [facility] use at least one of these dose optimization techniques: automated e xposure control; mA and/or kV adjustment per patient size (includes targeted exams where dose is matc hed to clinical indication); or iterative reconstruction. FINDINGS: No evidence of intracranial hemorrhage or mass effect. Ventricular system and basal cisterns are christie nt. Moderate to advanced small vessel changes. Moderate parenchymal volume loss. Chronic lacunar infa rcts in the bilateral basal ganglia. Vascular calcification. Paranasal sinuses and mastoid air cells are well aerated. .Normal visualized soft tissues. CT/CT head wo con* [id number] IMPRESSION: 1. No evidence of intracranial hemorrhage or mass effect. 2. Moderate to advanced small vessel changes. Moderate parenchymal volume loss . Small vessel changes slightly progressed compared thousand 19. 3. Chronic lacunar infarcts in the bilateral basal ganglia. 4. Progressed Vascular calcification. 5. No acute intracranial findings.
== END 2022-06-18 16:02 | disposition home or self-care (01) ==
LOC: RAD 16:07
PROVIDERS: PCP Family Medicine; Visit Provider Nurse Practitioner
DX: Z86.73 Personal history of transient ischemic attack (TIA), and cerebral infarction without residual deficits (principal)
CPT/HCPCS: 70450

== ENCOUNTER 2022-08-11 12:10 | Oncology outpatient (recurring) (ONCR) | payer MEDICARE, SELFPAY ==
[2022-08-11 12:45] VITALS: BP 165/80; PULSE 59; RESP 18; TEMP 36.4; O2SAT 93
[2022-08-11 12:57] LABS: Basophils % 0.5 %; Eosinophils # 0.2 10^3/uL (0.0-0.8); Eosinophils % 2.8 %; Hematocrit 38.9 % (37.0-47.0); Hemoglobin 12.6 g/dL (11.5-15.3); Lymphocytes # 1.5 10^3/uL (0.8-4.8); Lymphocytes % 26.3 %; Mean Corpuscular HGB Conc 32.4 g/dL (30.0-36.0); Mean Corpuscular Hemoglobin 29.6 pg (28.0-34.0); Mean Corpuscular Volume 91.3 fl (81-99); Mean Platelet Volume 9.5 fL (7.4-10.4); Monocytes # 0.4 10^3/uL (0.2-0.9); Monocytes % 7.7 %; Neutrophils % 62.3 %; Nucleated Red Blood Cells % 0 %; Platelet Count 230 10^3/cmm (130-400); Red Blood Count 4.26 10^6/uL (4.1-5.3); Red Cell Distribution Width 14.4 % (12.1-15.1); White Blood Count 5.6 10^3/uL (4.0-10.0)
[2022-08-11 13:15] LABS: Alanine Aminotransferase 14 U/L (0-33); Albumin Level 4.1 g/dL (3.5-5.2); Alkaline Phosphatase 46 U/L (35-105); Anion Gap 12.9 (5-19); Aspartate Amino Transferase 27 U/L (0-32); Blood Urea Nitrogen 13 mg/dL (8-23); Calcium 9.6 mg/dL (8.5-10.5); Carbon Dioxide 27 mmol/L (22-29); Chloride 102 mmol/L (98-107); Globulin 2.7 g/dL (1.3-4.6); Glucose 86 mg/dL (65-115); Lactate Dehydrogenase 199 U/L (135-214); Osmolality Calculated 283 mOsm/kg (285-295); Potassium 4.9 mmol/L (3.5-5.1); Sodium 137 mmol/L (136-145); Total Bilirubin 0.5 mg/dL (0.15-1.2); Total Protein 6.8 g/dL (6.6-8.7)
[2022-08-11] MEDS: denosumab 60 mg SDV SUBCUT (15:00)
== END 2022-09-06 23:59 | disposition home or self-care (01) ==
PROVIDERS: PCP Family Medicine; Visit Provider Internal Medicine Medical Oncology
DX: Z08 Encounter for follow-up examination after completed treatment for malignant neoplasm (principal); Z85.72 Personal history of non-Hodgkin lymphomas; M81.0 Age-related osteoporosis without current pathological fracture; M48.50XA Collapsed vertebra, not elsewhere classified, site unspecified, initial encounter for fracture; Z79.899 Other long term (current) drug therapy; Z92.3 Personal history of irradiation
CPT/HCPCS: 36415; 80053; 83615; 85025; 96372; 99214; J0897

== ENCOUNTER 2022-10-13 08:40 | Outpatient (CLI) | payer MEDICARE, SELFPAY ==
--- NOTE | 2022-10-13 08:46 | MR_ITS ---
WS: [id number] MRI BRAIN WITHOUT CONTRAST HISTORY: ABNORMAL HEAD CT/MULTIPLE LACUNAR INFARCTS/HEADACHE COMPARISON: CT 06/18/2022, MRI brain 03/09/2013 TECHNIQUE: Diffusion imaging, multiplanar T1, T2 and FLAIR imaging obtained. No acute diffusion abnormality. No acute hemorrhage. Moderate to severe bilateral cerebral and cerebellar atrophy. There is been a significant progression of small vessel ischemic disease since 2013. Stable RIGHT periventricular lacunar infarct. Additiona l smaller lacunar infarct in the RIGHT basal ganglia is new. Prior lacunar infarct LEFT anterior jose juan us callosum. Mildly prominent ventricles and extra-axial spaces on the basis of central and peripheral atrophy. No inferior displacement of cerebellar tonsils. The sella turcica and pituitary gland are unremarkabl e. Dural venous sinuses and [place] demonstrate no abnormality on this unenhanced studies. LEFT vertebral artery is tortuous and crosses the midline. Paranasal sinuses: Clear. Mastoid air cells: Normal. Calvarium and scalp: Intact. IMPRESSION: 1. No acute infarct or hemorrhage. 2. Significant progression of small vessel ischemic disease since 2013. Stable RIGHT periventricular lacunar infarct since 2013. There is a new very small lacunar infarct in the RIGHT basal ganglia sin ce 2013. This is not acute. 3. Moderate to severe bilateral cerebral and cerebellar atrophy.
== END 2022-10-13 08:41 | disposition home or self-care (01) ==
PROVIDERS: PCP Family Medicine; Visit Provider Nurse Practitioner
DX: R93.0 Abnormal findings on diagnostic imaging of skull and head, not elsewhere classified (principal); Z86.73 Personal history of transient ischemic attack (TIA), and cerebral infarction without residual deficits; R51.9 Headache, unspecified
CPT/HCPCS: 70551

== ENCOUNTER → 2022-11-03 08:54 | Outpatient (BNVA) | payer MEDICARE, SELFPAY | PROVIDERS: PCP Family Medicine; Referring Provider Nurse Practitioner; Visit Provider Psychiatry & Neurology Neurology | DX: Z86.73 Personal history of transient ischemic attack (TIA), and cerebral infarction without residual deficits (principal); G31.84 Mild cognitive impairment of uncertain or unknown etiology | CPT/HCPCS: 99203 ==

== ENCOUNTER 2023-02-17 12:03 | Oncology outpatient (recurring) (ONCR) | payer MEDICARE, SELFPAY ==
[2023-02-17 12:15] VITALS: BP 180/87; PULSE 80; RESP 16; TEMP 36.6; O2SAT 94
[2023-02-17 12:26] LABS: Basophils % 0.8 %; Eosinophils # 0.2 10^3/uL (0.0-0.8); Hematocrit 40.4 % (36-47); Lymphocytes # 1.1 10^3/uL (0.8-4.8); Lymphocytes % 22.4 %; Mean Corpuscular HGB Conc 32.9 g/dL (30-55); Mean Corpuscular Hemoglobin 31.1 pg (27-33); Mean Corpuscular Volume 94.6 fl (85-98); Mean Platelet Volume 9.9 fL (7.4-10.4); Monocytes # 0.5 10^3/uL (0.2-0.9); Monocytes % 8.9 %; Neutrophils # 3.26 10^3/uL (1.8-7.7); Neutrophils % 64.7 %; Nucleated Red Blood Cells % 0 %; Platelet Count 201 10^3/cmm (157-399); Red Blood Count 4.27 10^6/uL (3.85-5.65); Red Cell Distribution Width 12.8 % (12.1-15.1); White Blood Count 5.04 10^3/uL (3.29-11.43)
[2023-02-17 12:44] LABS: Alanine Aminotransferase 18 U/L (0-33); Albumin Level 3.9 g/dL (3.5-5.2); Alkaline Phosphatase 61 U/L (35-105); Aspartate Amino Transferase 31 U/L (0-32); Blood Urea Nitrogen 18 mg/dL (8-23); Carbon Dioxide 27 mmol/L (22-29); Chloride 104 mmol/L (98-107); Globulin 2.9 g/dL (1.3-4.6); Glucose 127 mg/dL (65-115); Osmolality Calculated 293 mOsm/kg (285-295); Sodium 140 mmol/L (136-145); Total Bilirubin 0.3 mg/dL (0.15-1.2); Total Protein 6.8 g/dL (6.6-8.7)
[2023-02-17 12:55] LABS: Anion Gap 13.4 (5-19); Lactate Dehydrogenase 215 U/L (135-214); Potassium 4.4 mmol/L (3.5-5.1)
[2023-02-17] MEDS: denosumab 60 mg SDV SUBCUT (14:10)
== END 2023-03-09 23:59 | disposition home or self-care (01) ==
PROVIDERS: Nurse Practitioner Family; PCP Family Medicine; Visit Provider Internal Medicine Medical Oncology
DX: Z08 Encounter for follow-up examination after completed treatment for malignant neoplasm (principal); Z85.72 Personal history of non-Hodgkin lymphomas; M54.50 Low back pain, unspecified; M81.0 Age-related osteoporosis without current pathological fracture; M48.50XA Collapsed vertebra, not elsewhere classified, site unspecified, initial encounter for fracture; F41.9 Anxiety disorder, unspecified; Z79.899 Other long term (current) drug therapy; Z92.3 Personal history of irradiation
CPT/HCPCS: 36415; 80053; 83615; 85025; 96372; 99214; J0897

== ENCOUNTER 2023-03-22 12:45 | Outpatient (CLI) | payer MEDICARE, SELFPAY ==
--- NOTE | 2023-03-22 13:30 | XR_ITS ---
WS: [email or web address] SCREENING DEXA SCAN [employer] CLINICAL INFORMATION: HISTORY OF OSTEOPOROSIS COMPARISON: None. FINDINGS: The L1-L4 bone mineral density measures 0.942 g/cm2. This corresponds to a T score score of -2.0 and Z score of 0.7. Left femoral neck bone mineral density measures 0.706 g/cm2. This corresponds to a T score of -2.4 an d Z score of 0.5. Right femoral neck bone mineral density measures 0.640 g/cm2. This corresponds to a T score -2.9of an d Z score of -0.1. Mean femoral neck bone mineral density measures 0.673 g/cm2. This corresponds to a T score of -2.7 an d Z score of 0.2. IMPRESSION: Osteopenia lumbar spine. Osteoporosis femoral necks. Patient's FRAX calculated 10 year probability for major osteoporotic fracture is 26.5% and osteoporot ic hip fracture is 14.6%. Bone mineral density femoral necks decreased -0.1% since 2019 Bone marrow density lumbar spine increased 15.3% since 2019
== END 2023-03-22 12:46 | disposition home or self-care (01) ==
LOC: RAD 12:45
PROVIDERS: PCP Family Medicine; Visit Provider Nurse Practitioner Family
DX: Z13.820 Encounter for screening for osteoporosis (principal); M81.0 Age-related osteoporosis without current pathological fracture; M85.88 Other specified disorders of bone density and structure, other site
CPT/HCPCS: 77080

== ENCOUNTER 2023-08-18 10:00 | Oncology outpatient (recurring) (ONCR) | payer MEDICARE, SELFPAY ==
[2023-08-18 10:29] LABS: Basophils % 0.6 %; Eosinophils # 0.1 10^3/uL (0.0-0.8); Eosinophils % 2.2 %; Hematocrit 39.4 % (36-47); Lymphocytes # 1.3 10^3/uL (0.8-4.8); Lymphocytes % 25.2 %; Mean Corpuscular HGB Conc 32.5 g/dL (30-55); Mean Corpuscular Hemoglobin 30.3 pg (27-33); Mean Corpuscular Volume 93.4 fl (85-98); Mean Platelet Volume 10.2 fL (7.4-10.4); Monocytes # 0.4 10^3/uL (0.2-0.9); Monocytes % 7.8 %; Nucleated Red Blood Cells % 0 %; Platelet Count 210 10^3/cmm (157-399); Red Blood Count 4.22 10^6/uL (3.85-5.65); Red Cell Distribution Width 13.6 % (12.1-15.1)
[2023-08-18 10:47] LABS: Alanine Aminotransferase 13 U/L (0-33); Albumin Level 4.1 g/dL (3.5-5.2); Alkaline Phosphatase 51 U/L (35-105); Anion Gap 14.1 (5-19); Aspartate Amino Transferase 29 U/L (0-32); Blood Urea Nitrogen 17 mg/dL (8-23); Calcium 9.8 mg/dL (8.5-10.5); Carbon Dioxide 27 mmol/L (22-29); Chloride 101 mmol/L (98-107); Globulin 2.9 g/dL (1.3-4.6); Glucose 102 mg/dL (65-115); Lactate Dehydrogenase 210 U/L (135-214); Osmolality Calculated 288 mOsm/kg (285-295); Potassium 4.1 mmol/L (3.5-5.1); Sodium 138 mmol/L (136-145); Total Bilirubin 0.5 mg/dL (0.15-1.2)
[2023-08-18] MEDS: denosumab 60 mg SDV SUBCUT (12:24)
== END 2023-09-07 23:59 | disposition home or self-care (01) ==
PROVIDERS: Nurse Practitioner Family; PCP Family Medicine; Visit Provider Internal Medicine Medical Oncology
DX: Z79.899 Other long term (current) drug therapy; Z92.3 Personal history of irradiation; C82.19 Follicular lymphoma grade II, extranodal and solid organ sites; R21 Rash and other nonspecific skin eruption
CPT/HCPCS: 36415; 80053; 83615; 85025; 96372; 99214; J0897

== ENCOUNTER → 2023-11-02 15:08 | Outpatient (BNVA) | payer MEDICARE, SELFPAY | PROVIDERS: PCP Family Medicine; Visit Provider Psychiatry & Neurology Neurology | DX: G31.84 Mild cognitive impairment of uncertain or unknown etiology; Z86.73 Personal history of transient ischemic attack (TIA), and cerebral infarction without residual deficits | CPT/HCPCS: 99212; 99213 ==

== ENCOUNTER 2023-11-29 14:19 | Oncology outpatient (recurring) (ONCR) | payer MEDICARE, SELFPAY ==
--- NOTE | 2023-11-29 14:30 | MR_ITS ---
WS: [id number] MRI BRAIN WITHOUT CONTRAST HISTORY: Z86.73 - Personal history of transient ischemic attack (T... COMPARISON: 10/13/2022 TECHNIQUE: Diffusion imaging, multiplanar T1, T2 and FLAIR imaging obtained. Normal diffusion imaging. There is extensive patchy and confluent periventricular white matter diseas e with small lacunar infarcts. Mild progression of small vessel disease since 2022. Centrum semiovale lacunar infarcts are stable. Moderate cerebral volume loss and atrophy. Ventricles and extra-axial spaces are normal. No inferior displacement of cerebellar tonsils. The sella turcica and pituitary gland are unremarkabl e. Dural venous sinuses and [place] demonstrate no abnormality on this unenhanced studies. Paranasal sinuses: Clear. Mastoid air cells: Normal. Calvarium and scalp: Intact. MR/MR head wo con* [id number] IMPRESSION: 1. No acute infarct. Normal diffusion imaging. 2. Advanced cerebral atrophy with small vessel disease. Mild progression since 2022. 3. No mass effect.
--- NOTE | 2023-11-29 15:30 | USCV_ITS ---
Stacie Hernandez Age: 88 Gender: F : 1935 Exam Date: 11/29/2023 14:38 Ordering Phys: Terell Parish MD Technologist: [facility] Exam Location: [facility] Indication: TIA Risk Factors: Previous Vascular Surgery: Right Brachial BP: / Left Brachial BP: / Right Left Velocity (cm/s) Spectral Plaque Velocity (cm/s) Spectral Plaque Syst/Diast Broadening Syst/Diast Broadening 66.30/ 11.80 Prox CCA 52.00 / 7.90 61.90/ 5.00 Mid CCA 69.80 / 15.20 56.70/ 7.50 Distal CCA 67.60 / 9.70 47.80/ 13.10 Prox ICA 64.80 / 13.10 65.80/ 14.90 Mid ICA 58.10 / 14.00 82.30/ 20.50 Distal ICA 60.50 / 12.60 44.30 ECA 48.80 1.50 ICA/CCA 1.00 Antegrade Vertebral Antegrade 44.40/ 10.40 cm/s 33.30/ 8.50 cm/s Bi Subclavian Bi 86.10 94.20 CONCLUSIONS Right ICA stenosis <50%. Moderate atheromatous plaque right carotid bulb/ICA. Left ICA stenosis <50%. Moderate atheromatous plaque left carotid bulb/ICA. Intimal thickening in the common carotid arteries and internal carotid arteries bilaterally. Normal antegrade Doppler flow noted in the right vertebral artery. Normal antegrade Doppler flow noted in the left vertebral artery. Gamal Trotter MD (Electronically Signed) Final Date: 29 November 2023 16:03 S
== END 2023-12-08 23:59 | disposition home or self-care (01) ==
LOC: RAD 14:22 → ONCMED 12-05 10:40
PROVIDERS: PCP Family Medicine; Visit Provider Psychiatry & Neurology Neurology
DX: C82.19 Follicular lymphoma grade II, extranodal and solid organ sites (principal); Z79.899 Other long term (current) drug therapy; Z92.3 Personal history of irradiation; R21 Rash and other nonspecific skin eruption; Z86.73 Personal history of transient ischemic attack (TIA), and cerebral infarction without residual deficits; G31.84 Mild cognitive impairment of uncertain or unknown etiology
CPT/HCPCS: 70551; 93880

== ENCOUNTER 2024-03-13 12:50 | Oncology outpatient (recurring) (ONCR) | payer MEDICARE, SELFPAY ==
[2024-03-13 13:08] LABS: Basophils % 0.6 %; Eosinophils # 0.2 10^3/uL (0.0-0.8); Eosinophils % 2.2 %; Hematocrit 39.4 % (36-47); Lymphocytes % 14.9 %; Mean Corpuscular HGB Conc 32.7 g/dL (30-55); Mean Corpuscular Hemoglobin 30.5 pg (27-33); Mean Corpuscular Volume 93.1 fl (85-98); Mean Platelet Volume 9.6 fL (7.4-10.4); Monocytes # 0.5 10^3/uL (0.2-0.9); Neutrophils # 4.96 10^3/uL (1.8-7.7); Nucleated Red Blood Cells % 0 %; Platelet Count 219 10^3/cmm (157-399); Red Blood Count 4.23 10^6/uL (3.85-5.65); Red Cell Distribution Width 14.2 % (12.1-15.1); White Blood Count 6.71 10^3/uL (3.29-11.43)
[2024-03-13 13:34] LABS: Alanine Aminotransferase 12 U/L (0-33); Albumin Level 4.4 g/dL (3.5-5.2); Alkaline Phosphatase 71 U/L (35-105); Anion Gap 13.8 (5-19); Aspartate Amino Transferase 30 U/L (0-32); Blood Urea Nitrogen 12 mg/dL (8-23); Calcium 9.7 mg/dL (8.5-10.5); Carbon Dioxide 28 mmol/L (22-29); Chloride 97 mmol/L (98-107); Creatinine Clr Calc Pharmacy 26.1102; Glucose 105 mg/dL (65-115); Lactate Dehydrogenase 263 U/L (135-214); Osmolality Calculated 278 mOsm/kg (285-295); Potassium 4.8 mmol/L (3.5-5.1); Sodium 134 mmol/L (136-145); Total Bilirubin 0.3 mg/dL (0.15-1.2); Total Protein 7.4 g/dL (6.6-8.7)
[2024-03-13] MEDS: denosumab 60 mg SDV SUBCUT (14:35)
[2024-03-13 14:39] LABS: Bilirubin Urine Negative (Negative); Blood Urine Negative (Negative); Glucose Urine UA Negative (Normal); Ketones Urine Negative (Negative); Leukocyte Esterase Urine Negative (Negative); Nitrate Urine Negative (Negative); Protein Urine Negative (Negative); Specific Gravity, Urine 1.012 (1.005-1.030); Urine Appearance Clear (CLEAR); Urine Color Yellow (Yellow)
[2024-03-13 14:44] LABS: Add Urine Microscopic? YES; Bacteria Urine None Seen /hpf; Hyaline Casts Urine 0.81 /lpf; RBC Urine 0-2 /hpf (0-2); Squamous Epithelial Cell Urine 0-5 /hpf (0-5); WBC Urine 0-5 /hpf (0-5)
== END 2024-04-06 23:59 | disposition home or self-care (01) ==
PROVIDERS: Nurse Practitioner Family; PCP Family Medicine; Visit Provider Psychiatry & Neurology Neurology
DX: M81.0 Age-related osteoporosis without current pathological fracture (principal); R10.32 Left lower quadrant pain; M54.6 Pain in thoracic spine; Z85.72 Personal history of non-Hodgkin lymphomas; Z79.899 Other long term (current) drug therapy; Z92.3 Personal history of irradiation
CPT/HCPCS: 36415; 80053; 81001; 83615; 85025; 96372; 99214; J0897

== ENCOUNTER 2024-04-11 11:37 | Oncology outpatient (recurring) (ONCR) | payer MEDICARE, SELFPAY ==
--- NOTE | 2024-04-11 12:30 | CT_ITS ---
WS: [id number] CT ABDOMEN AND PELVIS WITH CONTRAST HISTORY: abdominal pain and back pain in location of prior lymphoma TECHNIQUE: Imaging performed of the abdomen and pelvis with IV contrast. Single phase imaging of the abdomen. Coronal and sagittal reformats are submitted. All CT scans at [facility] use at least one of these dose optimization techniques: automated exposure control; mA and/or kV adjustment per patient size (includes targeted exams where dose is matched to clinical indication); or iterative reconstruction. IV CONTRAST: Omnipaque 350; 100 mL IV. Oral contrast: Yes. DLP: 260.35 mGy.cm COMPARISON: 10/19/2016 Lower thorax: Mild elevation of the RIGHT diaphragm. Mild atelectasis at the RIGHT lung base. Chronic emphysema. Normal size heart. Mild compression upon the RIGHT atrium by the elevated liver. Small amount of oral contrast in the distal esophagus. Liver/biliary system: Normal size with no intrahepatic dilatation. Gallbladder: Prior cholecystectomy. Pancreas: Diffuse pancreatic atrophy. No duct dilatation. Normal size common bile duct at the pancreatic head. Spleen: Normal size spleen. No mass or infarct. Adrenal glands: Normal. Right kidney: Atrophy and diffuse cortical thinning. Several small cortical cysts. No solid mass or obstruction. Left kidney: Cortical thinning and mild renal atrophy. Small cortical hypodensities. No obstruction of the kidney. Aorta: Mild atherosclerosis with no aneurysm. Calcification at the origin of the celiac axis and SMA. Lymphadenopathy: None. Free fluid: None. GI tract: No obstruction. Stomach is distended with oral contrast and air. No small bowel obstruction. Advanced diverticulosis in the sigmoid colon and descending colon. No obstruction. Hepatic flexure is positioned between the liver and diaphragm. Abdominal wall: Unremarkable abdominal wall. No hernia. Pelvis: No free fluid or adenopathy within the pelvis. Bones: Marked kyphosis centered at thoracolumbar junction. Chronic compression fractures at T11, T12 and L1. No destructive bone lesions are identified. CT/CT abdomen pelvis w con* [id number] IMPRESSION: 1. No ascites or adenopathy in the abdomen or pelvis. 2. Advanced sigmoid diverticulosis. No acute diverticulitis identified. There is no obstructive pattern but there is tortuosity and colonic wall thickening. Underlying neoplasm would be difficult to exclude. 3. Mild bilateral renal atrophy with cortical thinning and cysts. 4. Prior cholecystectomy.
[2024-04-11] MEDS: iohexol 350 mg/mL 500 mL Btl (per mL) PO (13:08)
[2024-04-11] MEDS: iohexol 350 mg/mL 500 mL Btl (per mL) IV (13:27)
== END 2024-05-07 23:59 | disposition home or self-care (01) ==
LOC: ONCMED 11:42
PROVIDERS: PCP Family Medicine; Visit Provider Nurse Practitioner Family
DX: K57.30 Diverticulosis of large intestine without perforation or abscess without bleeding (principal); N26.1 Atrophy of kidney (terminal); N28.1 Cyst of kidney, acquired; Z90.5 Acquired absence of kidney
CPT/HCPCS: 74177

== ENCOUNTER 2024-08-01 07:44 | Oncology outpatient (recurring) (ONCR) | payer MEDICARE, SELFPAY ==
[2024-08-01 08:38] LABS: Basophils % 0.7 %; Eosinophils # 0.1 10^3/uL (0.0-0.8); Eosinophils % 2.2 %; Lymphocytes # 1.1 10^3/uL (0.8-4.8); Lymphocytes % 20.4 %; Mean Corpuscular HGB Conc 33.1 g/dL (30-55); Mean Corpuscular Hemoglobin 31.2 pg (27-33); Mean Corpuscular Volume 94.4 fl (85-98); Mean Platelet Volume 9.5 fL (7.4-10.4); Monocytes # 0.4 10^3/uL (0.2-0.9); Monocytes % 7.1 %; Neutrophils # 3.73 10^3/uL (1.8-7.7); Neutrophils % 69.4 %; Nucleated Red Blood Cells % 0 %; Platelet Count 186 10^3/cmm (157-399); Red Blood Count 4.13 10^6/uL (3.85-5.65); Red Cell Distribution Width 13.5 % (12.1-15.1); White Blood Count 5.38 10^3/uL (3.29-11.43)
[2024-08-01 08:55] LABS: Alanine Aminotransferase 10 U/L (0-33); Alkaline Phosphatase 51 U/L (35-105); Anion Gap 13.6 (5-19); Aspartate Amino Transferase 27 U/L (0-32); Blood Urea Nitrogen 13 mg/dL (8-23); Calcium 9.4 mg/dL (8.5-10.5); Carbon Dioxide 27 mmol/L (22-29); Chloride 101 mmol/L (98-107); Globulin 3.1 g/dL (1.3-4.6); Glucose 101 mg/dL (65-115); Lactate Dehydrogenase 227 U/L (135-214); Osmolality Calculated 284 mOsm/kg (285-295); Potassium 4.6 mmol/L (3.5-5.1); Sodium 137 mmol/L (136-145); Total Bilirubin 0.4 mg/dL (0.15-1.2); Total Protein 7.1 g/dL (6.6-8.7)
== END 2024-08-06 23:59 | disposition home or self-care (01) ==
PROVIDERS: PCP Family Medicine; Visit Provider Nurse Practitioner Family
DX: K57.30 Diverticulosis of large intestine without perforation or abscess without bleeding (principal); N26.1 Atrophy of kidney (terminal); N28.1 Cyst of kidney, acquired; Z90.5 Acquired absence of kidney
CPT/HCPCS: 36415; 80053; 83615; 85025; 99214